=== PATIENT | female | born 2000 | race African-American/Black ===

== ENCOUNTER 2019-03-18 13:46 | Inpatient (IN) | payer MEDICAID ==
[~2019-03-18] VITALS: Ht 165.1 cm; Wt 105.7 kg
[2019-03-18] VITALS (7 sets, daily range): BP systolic 139–174; BP diastolic 71–93
--- NOTE | 2019-03-18 13:56 | NUR ---
BIB ems c/o bilateral lower extremity weakness, to er bed 9, hooked to monitor, changed to hosp gown, warm blanket provided, awaiting md juárez
--- NOTE | 2019-03-18 14:01 | NUR ---
ARTUR NGUYEN AT BEDSIDE
--- NOTE | 2019-03-18 14:02 | NUR ---
penelope berger at bedside
[2019-03-18 14:23] LABS: BASOPHILS % (AUTO) 0.2 % (0.0-2.0); HEMATOCRIT 44 % (33-45); HEMOGLOBIN 14.5 g/dL (11.5-14.8); LYMPHOCYTES # (AUTO) 0.7 /CMM (0.8-4.8); LYMPHOCYTES % (AUTO) 3.4 % (20.0-44.0); MEAN CORPUSCULAR HGB CONC 33 g/dl (31.0-36.0); MEAN CORPUSCULAR VOLUME 80 fL (82-100); MONOCYTES # (AUTO) 1.2 /CMM (0.1-1.30); MONOCYTES % (AUTO) 5.8 % (2.0-12.0); NEUTROPHILS # (AUTO) 18.5 /CMM (1.8-8.9); NEUTROPHILS % (AUTO) 90.6 % (43.0-81.0); PLATELET COUNT (AUTO) 424 /CMM (150-450); RED BLOOD CELL COUNT(AUTO) 5.44 MIL/uL (4.0-5.2); WHITE BLOOD COUNT (AUTO) 20.5 K/uL (4.3-11.0)
[2019-03-18] MEDS ORDERED: ONDANSETRON HCL/PF 4 MG/2 ML VIAL IVP ONE (14:30)
[2019-03-18] MEDS ORDERED: IV NS 0.9% 1,000 ML BAG IV ONE ×2 (14:30→18:00)
[2019-03-18] MEDS ORDERED: KETOROLAC TROMETHAMINE INJ 30 MG/ML VIAL IV ONE (14:30)
[2019-03-18] MEDS ORDERED: ONDANSETRON HCL/PF 4 MG/2 ML VIAL ONE (14:43)
[2019-03-18 14:59] LABS: BILIRUBIN,DIRECT 0.1 mg/dL (0.0-0.2); BILIRUBIN,TOTAL 0.5 mg/dL (0.2-1.0); TOTAL PROTEIN, SERUM 8.5 g/dL (6.4-8.2)
[2019-03-18 15:01] LABS: CALCIUM, SERUM 5.6 mg/dL (8.5-10.1); POTASSIUM 8.4 mmol/L (3.5-5.1)
[2019-03-18 15:02] LABS: CREATININE 8.4 mg/dL (0.6-1.3)
[2019-03-18] MEDS ORDERED: KETOROLAC TROMETHAMINE INJ 30 MG/ML VIAL ONE (15:19)
[2019-03-18] MEDS ORDERED: INSULIN REGULAR, HUMAN 100 UNIT in IV NS 0.9% 99 ML IV PRN ×2 (15:30)
[2019-03-18] MEDS ORDERED: SODIUM POLYSTYRENE SULFONATE 15 G/60 ML BOTTLE RC ONE (15:30)
[2019-03-18] MEDS ORDERED: Magnesium 1GM/D5W 100ML PREMIX 100 ML IV ONE ×2 (15:30→15:36)
[2019-03-18] MEDS ORDERED: FUROSEMIDE 40 MG/4 ML VIAL IV ONE (15:30)
[2019-03-18] MEDS ORDERED: Calcium Gluconate 1GM/10ML 4.65 MEQ in IV NS 0.9% 40 ML IV ONE (15:30)
[2019-03-18] MEDS ORDERED: ALBUTEROL FS 2.5 MG/3 ML VIAL.NEB CONTNEB ONE (15:30)
[2019-03-18] MEDS ORDERED: SODIUM BICARBONATE 5 ML VIAL IV ONE (15:30)
--- NOTE | 2019-03-18 15:30 | NUR ---
FORKLIFT TRUCK OPERATOR AT BEDSIDE
[2019-03-18] MEDS ORDERED: FUROSEMIDE 40 MG/4 ML VIAL ONE (15:36)
[2019-03-18] MEDS ORDERED: SODIUM BICARBONATE 5 ML VIAL ONE (15:36)
[2019-03-18 16:02] LABS: ACETAMINOPHEN < 10 ug/ml (10-30); SALICYLATE 1.2 mg/dL (2.8-20.0)
[2019-03-18] MEDS ORDERED: ALBUTEROL FS 2.5 MG/3 ML VIAL.NEB ONE (16:31)
--- NOTE | 2019-03-18 16:40 | NUR ---
RT AT BEDSIDE FOR BREATHING TX
--- NOTE | 2019-03-18 16:43 | NUR ---
URINE SAMPLE COLLECTED VIA STRAIGHT CATHETER, SENT SAMPLE TO LAB
--- NOTE | 2019-03-18 16:44 | NUR ---
INSULIN REGULAR 0.9% 100ML BAG 1 UNIT/ML CANCELLED BY PHYSICIAN. WASTED MED WITH LISA MANZO.
[2019-03-18] MEDS ORDERED: DEXTROSE 50%-WATER 50 ML DISP.SYRIN ONE (16:46)
[2019-03-18] MEDS ORDERED: INSULIN REGULAR, HUMAN 100 UNIT/ML 10 ML VIAL ONE (16:46)
[2019-03-18] MEDS ORDERED: SODIUM POLYSTYRENE SULFONATE 15 G/60 ML BOTTLE ONE (16:46)
[2019-03-18 16:53] LABS: APPEARANCE,URINE Turbid (CLEAR); BILIRUBIN,URINE SMALL (NEGATIVE); BLOOD, URINE Large Ery/uL (NEGATIVE); COLOR,URINE Brown (YELLOW); KETONES,URINE Negative (NEGATIVE); LEUKOCYTE ESTERASE ,URINE Negative (NEGATIVE); NITRITE, URINE Negative (NEGATIVE); PH,URINE 5.5 (5.0-8.0); PROTEIN,URINE >=300 mg/dl (NEGATIVE); UGLUCOSE 100 MG/DL mg/dL (NEGATIVE); UROBILINOGEN,URINE 0.2 EU/dL (0.2)
[2019-03-18] MEDS ORDERED: INSULIN REGULAR, HUMAN 100 UNIT/ML 10 ML VIAL IV ONE (17:00)
[2019-03-18] MEDS ORDERED: DEXTROSE 50%-WATER 50 ML DISP.SYRIN IVP ONE ×2 (17:00→20:00)
[2019-03-18 17:10] LABS: BACTERIA,URINE None seen /HPF (None Seen); SQUAMOUS EPITHELIAL CELL,UR Moderate /HPF (None Seen); WBC,URINE 0-2 /HPF (0-3)
[2019-03-18 17:11] LABS: URINE AMORPHOUS URATE Many /HPF (None Seen)
--- NOTE | 2019-03-18 17:30 | NUR ---
GOT BED 257 ICU
[2019-03-18] MEDS ORDERED: SODIUM POLYSTYRENE SULFONATE 15 G/60 ML BOTTLE PO ONE (18:00)
[2019-03-18] MEDS ORDERED: IV NS 0.9% 1,000 ML IV PRN (18:04)
--- NOTE | 2019-03-18 18:07 | NUR ---
report given to nila of icu
--- NOTE | 2019-03-18 18:14 | NUR ---
ICU/RN-ADMITTED THIS 19 Y/O FEMALE FROM ER PER ACLS PROTOCOL. ROUTINE ICU ADMISSION CARE INITIATED. NURSING FOCUS:ALTERED RENAL TISSUE PERFUSION R/R DIAGNOSIS:HYPERKALEMIA,KIDNEY FAILURE,RHABDO.,LIVER SHOCK.PT. AWAKE, ALERT, EXPRESSIVE OF NEEDS. DENIES ANY PAIN OR DISCOMFORT. AFEBRILE. PT. IS A FULL CODE.
[2019-03-18] MEDS ORDERED: ZOLPIDEM TARTRATE 5 MG TABLET PO PRN (18:30)
[2019-03-18] MEDS ORDERED: MORPHINE SULFATE INJ 2 MG/ML DISP.SYRIN IV PRN (18:30)
[2019-03-18] MEDS ORDERED: MAGNESIUM HYDROXIDE 30 ML UDC PO PRN (18:30)
--- NOTE | 2019-03-18 19:00 | NUR ---
ICU/RN- PT. W/ URGE TO URINATE, BUT UNABLE TO URINATE. EM CATH X 1 ATTEMPT INSERTED VIA ASEPTIC TECHNIQUE. OBTAINED SCANTY CLEAR TEA COLORED U/O.
[2019-03-18 19:26] LABS: CALCIUM, SERUM 5.4 mg/dL (8.5-10.1); CREATININE 8.8 mg/dL (0.6-1.3); POTASSIUM 7.7 mmol/L (3.5-5.1)
--- NOTE | 2019-03-18 19:30 | NUR ---
ICU/RN- LAB CALLED W/ CRITICAL LAB VALUES NOTED. WILL NOTIFY MD PER PROTOCOL. STATUS UNCHANGED, REPORT GIVEN TO JOVANY LAMBERT.
[2019-03-18] MEDS ORDERED: INSULIN REGULAR, HUMAN 100 UNIT/ML 3 ML VIAL IV ONE (20:00)
--- NOTE | 2019-03-18 20:00 | NUR ---
RN OPENING NOTES: PATIENT IN BED, AWAKE, AND VERBALLY RESPONSIVE. NO RESPIRATORY DISTRESS. NO C/O PAIN. SAFETY PRECAUTIONS IMPLEMENTED. BED LOCKED, ALARM ON, AND IN LOWEST POSITION. HOB ELEVATED. EM CATHETER WAS INSERTED BY CHARGE NURSE GENEVA. EM INTACT, PATENT, AND DRAINING SMALL AMOUNT OF TEA-COLORED URINE. CALL LIGHT PLACED WITHIN REACH. WILL CONT. TO MONITOR.
--- NOTE | 2019-03-18 20:15 | NUR ---
RN NOTE: RECEIVED A CALL FROM LIVE BOWER TO DC IV NS AND START PATIENT ON D5W WITH 3 AMPS OF BICARB. WILL CONT. TO MONITOR FOR CHANGES. Addendum: 03/19/19 at 0003 by XANDER LAMBERT RN DR. RAHMAN ALSO MADE AWARE.
[2019-03-18] MEDS: Sodium Bicarbonate 150 MEQ in IV D5W 1,000 ML IV PRN (20:58)
[2019-03-19] VITALS (29 sets, daily range): BP systolic 125–153; BP diastolic 62–109
[2019-03-19] MEDS: Sodium Bicarbonate 150 MEQ in IV D5W 1,000 ML IV PRN ×2 (03:27→09:57)
[2019-03-19 04:52] LABS: BASOPHILS % (AUTO) 0.1 % (0.0-2.0); EOSINOPHILS % (AUTO) 0.1 % (0.0-6.0); HEMATOCRIT 36 % (33-45); HEMOGLOBIN 12.3 g/dL (11.5-14.8); LYMPHOCYTES % (AUTO) 5.9 % (20.0-44.0); MEAN CORPUSCULAR HGB CONC 34 g/dl (31.0-36.0); MEAN CORPUSCULAR VOLUME 79 fL (82-100); MONOCYTES # (AUTO) 1.1 /CMM (0.1-1.30); MONOCYTES % (AUTO) 6.3 % (2.0-12.0); NEUTROPHILS % (AUTO) 87.6 % (43.0-81.0); PLATELET COUNT (AUTO) 381 /CMM (150-450); RED BLOOD CELL COUNT(AUTO) 4.52 MIL/uL (4.0-5.2); WHITE BLOOD COUNT (AUTO) 17.2 K/uL (4.3-11.0)
[2019-03-19 05:10] LABS: ALANINE AMINOTRANSFERASE 885 U/L (12-78); ALBUMIN 2.3 g/dL (3.4-5.0); ALKALINE PHOSPHATASE 58 U/L (46-116); ASPARTATE AMINOTRANSFERASE 1134 U/L (15-37); BILIRUBIN,TOTAL 0.4 mg/dL (0.2-1.0); CARBON DIOXIDE 23 mmol/L (21-32); CHLORIDE 86 mmol/L (98-107); GLUCOSE 119 mg/dL (74-106); MAGNESIUM 3.9 mg/dL (1.8-2.4); SODIUM SERUM 123 mmol/L (136-145); TOTAL PROTEIN, SERUM 6.7 g/dL (6.4-8.2)
[2019-03-19 05:23] LABS: CHOLESTEROL 120 mg/dL (<200); HDL CHOLESTEROL 42 mg/dL (40-60); LDL 56 mg/dL (0-99); THYROID STIMULATING HORMONE 3.444 uIU/mL (0.358-3.74); TRIGLYCERIDES 128 mg/dL (30-150)
[2019-03-19 05:33] LABS: CALCIUM, SERUM 5.5 mg/dL (8.5-10.1); POTASSIUM 6.3 mmol/L (3.5-5.1)
[2019-03-19 05:34] LABS: CREATININE 9.2 mg/dL (0.6-1.3); PHOSPHORUS 11.6 mg/dL (2.5-4.9); UREA NITROGEN, BLOOD 106 mg/dL (7-18)
--- NOTE | 2019-03-19 06:15 | NUR ---
RN NOTE: PAGED DR. RAHMAN REGARDING CRITICAL LABS, K+ 6.3, Ca 5.5, BUN 106, Cr 9.2, Phos 11.6. AWAITING FOR ORDERS. WILL CONT. TO MONITOR FOR CHANGES. Addendum: 03/19/19 at 0630 by XANDER LAMBERT RN DR. BARRERA MADE AWARE OF PATIENT'S K+ LEVEL. PER , HE WILL TAKE A LOOK AT IT. Addendum: 03/19/19 at 0653 by XANDER LAMBERT RN PAGED DR. RAHMAN AGAIN, STILL AWAITING FOR RESPONSE. CHARGE NURSE MADE AWARE.
[2019-03-19] MEDS ORDERED: INSULIN REGULAR, HUMAN 100 UNIT/ML 3 ML VIAL IV ONE (07:00)
[2019-03-19] MEDS ORDERED: DEXTROSE 50%-WATER 50 ML DISP.SYRIN IVP ONE (07:00)
--- NOTE | 2019-03-19 07:00 | NUR ---
RN CLOSING NOTES: PATIENT IN BED, ASLEEP, BUT EASILY AROUSABLE. NO RESPIRATORY DISTRESS. NO C/O PAIN AT THIS TIME. DR. RAHMAN MADE AWARE OF PATIENT'S CRITICAL LAB RESULTS, URINE OUTPUT OF 25 ML DURING SHIFT, AND URINE GREENISH IN COLOR. RECEIVED NEW ORDER REGULAR INSULIN 10 UNITS IV AND D50. PATIENT STILL ON D5W WITH 3 AMPS OF SODIUM BICARB, TOLERATING WELL. MD AWARE. SAFETY PRECAUTIONS IMPLEMENTED. BED LOCKED AND IN LOWEST POSITION. VITAL SIGNS WITHIN NORMAL THROUGHOUT THE SHIFT. ENDORSED TO AM SHIFT NURSE FOR CONTINUITY OF CARE.
--- NOTE | 2019-03-19 07:25 | NUR ---
ICU/RN PT IS ON THE BED.AWAKE,ALERT.V/S STABLE,AFEBRILE. ON ROOM AIR.SAT O2-100%.IV INFUSING ORDERED.F/C IN PLACE NO URINE OUTPUT.PT IS VERY WEAK,UNABLE TO TURN .C/O OF MUSCLE WEAKNESS AND PAIN WHET EXTREMITIES MOVED.LABS REVIEW. NOTIFIED. NEW ORDERS RECEIVED. DUE MEDS ARE GIVEN ORDERED.REPOSITION FOR COMFORT.
[2019-03-19 07:43] LABS: CREATINE KINASE, TOTAL > 34000 U/L (26-192)
[2019-03-19] MEDS: PANTOPRAZOLE 40 MG TABLET.DR PO SCH (07:54)
[2019-03-19] MEDS ORDERED: SODIUM POLYSTYRENE SULF. PWD 15 GM UDC PO ONE (11:00)
[2019-03-19] MEDS: Sodium Bicarbonate 150 MEQ in IV 1/2NS 1000 ML 1,000 ML IV PRN ×3 (11:18→23:15)
[2019-03-19 13:27] LABS: POTASSIUM 6.4 mmol/L (3.5-5.1)
[2019-03-19 13:28] LABS: CALCIUM, SERUM 5.1 mg/dL (8.5-10.1)
[2019-03-19 13:29] LABS: CREATININE 9.7 mg/dL (0.6-1.3)
--- NOTE | 2019-03-19 14:00 | NUR ---
ICU/RN RIGHT UPPER ARM MID LINE INSERTED ORDERED. DUE MEDS ARE GIVEN ORDERED.PT VOMIT.ZOFRAN IV GIVEN ORDERED.FAMILY AT BED SIDE.
[2019-03-19] MEDS: SEVELAMER CARBONATE 0.8 GM POWD.PACK GT SCH ×2 (14:04→17:02)
[2019-03-19] MEDS: CALCIUM ACETATE 667 MG TABLET PO SCH ×2 (14:04→17:02)
[2019-03-19] MEDS: ONDANSETRON HCL/PF 4 MG/2 ML VIAL IVP PRN (14:04)
--- NOTE | 2019-03-19 18:24 | NUR ---
ICU/RN PT HAD 2 BM.PM CARE PROVIDED.DUE MEDS ARE GIVEN ORDERED.STILL VERY WEAK.C/O OF GENERALIZED WEAKNESS .BMP REPEATED.CONTINUE MONITORING.
[2019-03-19 18:28] LABS: CALCIUM, SERUM 5.1 mg/dL (8.5-10.1); POTASSIUM 6.2 mmol/L (3.5-5.1)
[2019-03-19 18:29] LABS: CREATININE 9.7 mg/dL (0.6-1.3)
--- NOTE | 2019-03-19 19:00 | NUR ---
RN OPENING NOTES: PATIENT IN BED, AWAKE, AND VERBALLY RESPONSIVE. NO RESPIRATORY DISTRESS. NO C/O PAIN. SAFETY PRECAUTIONS IMPLEMENTED. BED LOCKED, ALARM ON, AND IN LOWEST POSITION. HOB ELEVATED. JUAN MIDLINE INTACT, PATENT, AND FLUSHING WELL. ON 02/18 NS WITH 150 MEQ NA BICARB AT 200 MLS/HR. (R) AC #18 AND (L) AC #18 C/D/I. HOB ELEVATED. EM INTACT, PATENT, AND DRAINING SMALL AMOUNT OF URINE GREENISH IN COLOR. CALL LIGHT PLACED WITHIN REACH. WILL CONT. TO MONITOR. Addendum: 03/19/19 at 2237 by XANDER LAMBERT RN 1900: PER AM NURSE, POSSIBLE HD CATH PLACEMENT TOMORROW.
--- NOTE | 2019-03-19 20:20 | NUR ---
RN NOTE: RECEIVED A PHONE CALL FROM PICC LINE NURSE SKINNY. PER SKINNY, DR. MOLINA ORDERED HD CATH INSERTION TODAY. NO ORDER FROM DR. MOLINA NOTED. PER PATIENT, SHE IS CONFUSED AND DOES NOT KNOW WHAT'S GOING ON. PATIENT'S MOM SHERIE SPOKE WITH JOVANY EVANS OVER PHONE AND REFUSED TO GIVE CONSENT TO HD CATH TONIGHT UNTIL SHE SPEAKS WITH DR. MOLINA TOMORROW MORNING. SHE STATED SHE HAD BEEN IN UNIT TODAY UNTIL 6PM AND MD HAS NOT SPOKEN TO HER REGARDING DIALYSIS. Addendum: 03/19/19 at 2226 by XANDER LAMBERT RN PATIENT'S MOM IS REQUESTING TO SPEAK WITH DR. MOLINA TOMORROW. WILL ENDORSE TO AM SHIFT NURSE. Addendum: 03/19/19 at 2228 by XANDER LAMBERT RN CHARGE NURSE ALSO MADE AWARE.
[2019-03-19 20:21] LABS: MONOTEST NEGATIVE (NEGATIVE)
[2019-03-20] VITALS (34 sets, daily range): BP systolic 84–152; BP diastolic 53–107
[2019-03-20] MEDS: Sodium Bicarbonate 150 MEQ in IV 1/2NS 1000 ML 1,000 ML IV PRN (05:13)
--- NOTE | 2019-03-20 07:15 | NUR ---
RN CLOSING NOTES: PATIENT IN STABLE CONDITION DURING SHIFT. PATIENT'S MOM WANTS TO SPEAK TO DR. MOLINA FIRST BEFORE GIVING CONSENT TO HD CATH PLACEMENT. ENDORSED TO AM CHARGE NURSE FOR CONTINUITY OF CARE.
[2019-03-20] MEDS: PANTOPRAZOLE 40 MG TABLET.DR PO SCH (07:30)
[2019-03-20] MEDS: CALCIUM ACETATE 667 MG TABLET PO SCH ×2 (08:00→12:41)
[2019-03-20] MEDS: SEVELAMER CARBONATE 0.8 GM POWD.PACK GT SCH ×2 (08:00→12:41)
[2019-03-20 08:32] LABS: BASOPHILS % (AUTO) 0.2 % (0.0-2.0); EOSINOPHILS % (AUTO) 0.1 % (0.0-6.0); HEMATOCRIT 35 % (33-45); HEMOGLOBIN 11.6 g/dL (11.5-14.8); LYMPHOCYTES # (AUTO) 1.1 /CMM (0.8-4.8); LYMPHOCYTES % (AUTO) 6.7 % (20.0-44.0); MEAN CORPUSCULAR HGB CONC 33 g/dl (31.0-36.0); MEAN CORPUSCULAR VOLUME 80 fL (82-100); MONOCYTES # (AUTO) 1.4 /CMM (0.1-1.30); MONOCYTES % (AUTO) 8.5 % (2.0-12.0); NEUTROPHILS # (AUTO) 14.2 /CMM (1.8-8.9); NEUTROPHILS % (AUTO) 84.5 % (43.0-81.0); PLATELET COUNT (AUTO) 415 /CMM (150-450); RED BLOOD CELL COUNT(AUTO) 4.36 MIL/uL (4.0-5.2); WHITE BLOOD COUNT (AUTO) 16.8 K/uL (4.3-11.0)
[2019-03-20 09:00] LABS: CREATININE 9.9 mg/dL (0.6-1.3)
[2019-03-20 11:20] LABS: LYMPHOCYTES % (MANUAL) 9 % (16-48); MONOCYTES % (MANUAL) 4 % (0-11.0); MYELOCYTES % 1 % (0-0); NEUTROPHILS % (MANUAL) 86 (42-76)
--- NOTE | 2019-03-20 13:50 | NUR ---
Patients mother at bedside on phone with Dr. Ge discussing purpose, risks and benefits of hemodialysis therapy. consent signed thereafter.
--- NOTE | 2019-03-20 16:50 | NUR ---
Patient reports vaginal bleeding, but is unsure if it is her menstrual cycle. She and mother believe the dates are off. There is scant to small amount of blood on bed chux, will endorse to night RN to monitor for any increase of vaginal bleeding. Patient reports comfort after PRN pain medication. and denies respiratory distress.
[2019-03-20] MEDS: HYDROCODONE/APAP 5/325MG 1 EACH TABLET PO PRN (17:04)
--- NOTE | 2019-03-20 19:04 | NUR ---
Patient alert and oriented to self, cognitive delay noted. IV fluids infusing as ordered and 275 CC of dark greenish brown, reddish urine output with foul odor.No BM this shift. Patient and mother notified that hemodialysis catheter placement will commence at approximately 1999 and hemodialysis will occur on 03/21/2019 as per MD orders.
--- NOTE | 2019-03-20 19:40 | NUR ---
Pt. obese, A&Ox3, developmentally delayed, breathing regular on RA, vs stable, denies pain. Pt unable to move legs independently, IV fluid [id number] running at 200ml/hr, JUAN, PICC site c/d/i, RAC #20, LAC #20, IV patent. Garner with minimal dark urine. Pt waiting for Hemodyalisis catheter insertion tonight. Comfort & safety checked.
--- NOTE | 2019-03-20 23:00 | NUR ---
Pt w Hemodialysis cath on R groin, triple lumen by LIVE Sharif.
[2019-03-21] VITALS (15 sets, daily range): BP systolic 94–161; BP diastolic 54–87
[2019-03-21] MEDS ORDERED: SODIUM BICARBONATE SYR 50 MEQ/50 ML DISP.SYRIN ONE (00:43)
[2019-03-21] MEDS: Sodium Bicarbonate 150 MEQ in IV 1/2NS 1000 ML 1,000 ML IV PRN ×2 (01:05→18:48)
--- NOTE | 2019-03-21 02:45 | NUR ---
Pt not sleeping mildly hyperactive, keep removing bp cuff, oximeter sensor. Verbal cues provided.
--- NOTE | 2019-03-21 05:08 | NUR ---
Pt high butts in bed, watching T.V. constantly calling nurse to scratch her feet. Skin massages on both legs given, moisturizing lotion applied.
[2019-03-21 05:19] LABS: BASOPHILS % (AUTO) 0.2 % (0.0-2.0); EOSINOPHILS % (AUTO) 0.1 % (0.0-6.0); HEMATOCRIT 34 % (33-45); HEMOGLOBIN 11.7 g/dL (11.5-14.8); LYMPHOCYTES # (AUTO) 1.1 /CMM (0.8-4.8); MEAN CORPUSCULAR HGB CONC 34 g/dl (31.0-36.0); MEAN CORPUSCULAR VOLUME 80 fL (82-100); MONOCYTES # (AUTO) 1.3 /CMM (0.1-1.30); MONOCYTES % (AUTO) 7.3 % (2.0-12.0); NEUTROPHILS # (AUTO) 15.7 /CMM (1.8-8.9); NEUTROPHILS % (AUTO) 86.4 % (43.0-81.0); PLATELET COUNT (AUTO) 475 /CMM (150-450); RED BLOOD CELL COUNT(AUTO) 4.29 MIL/uL (4.0-5.2); WHITE BLOOD COUNT (AUTO) 18.2 K/uL (4.3-11.0)
[2019-03-21 05:28] LABS: ALBUMIN 1.7 g/dL (3.4-5.0); BILIRUBIN,TOTAL 0.5 mg/dL (0.2-1.0); MAGNESIUM 2.8 mg/dL (1.8-2.4); POTASSIUM 5.6 mmol/L (3.5-5.1); TOTAL PROTEIN, SERUM 5.5 g/dL (6.4-8.2)
[2019-03-21 06:01] LABS: CALCIUM, SERUM 5.5 mg/dL (8.5-10.1); CREATININE 10.5 mg/dL (0.6-1.3); PHOSPHORUS 10.5 mg/dL (2.5-4.9)
--- NOTE | 2019-03-21 06:23 | NUR ---
Dr. Clark aware of lab results with critical values. Dialysis is due this morning aware as well. Pt. stable, ready for hemodialysis.
[2019-03-21 06:35] LABS: EOSINOPHILS % (MANUAL) 1 % (0-4); LYMPHOCYTES % (MANUAL) 7 % (16-48); MONOCYTES % (MANUAL) 9 % (0-11.0); NEUTROPHILS % (MANUAL) 83 (42-76)
--- NOTE | 2019-03-21 06:49 | NUR ---
Bed bath given, pt requires moderate help, new gown and linen applied. Ped w tinge of menstrural blood. comfort and safety maintained in pt.
[2019-03-21] MEDS: PANTOPRAZOLE 40 MG TABLET.DR PO SCH (07:30)
--- NOTE | 2019-03-21 07:32 | NUR ---
Report given to incoming SOURCING MANAGERJusta.
[2019-03-21] MEDS: SEVELAMER CARBONATE 0.8 GM POWD.PACK GT SCH ×3 (07:57→17:10)
[2019-03-21] MEDS: CALCIUM ACETATE 667 MG TABLET PO SCH ×3 (08:00→17:11)
--- NOTE | 2019-03-21 10:00 | NUR ---
INITIAL HD COMPLETED AND TOLERATED WELL. VITALS REMAINED STABLE. PER HOSPITALIST ANUP CABRERA TO DOWNGRADE IF OKAY WITH RENAL MD. SPOKE TO DR. GRANT TO DOWNGRADE TO TELEMETRY STATUS. MD ORDER PLACED.
[2019-03-21 11:39] LABS: CALCIUM, SERUM 6.3 mg/dL (8.5-10.1); POTASSIUM 4.7 mmol/L (3.5-5.1)
--- NOTE | 2019-03-21 12:20 | NUR ---
Report given to Amparo, RN 3 xenia at this time ,also notified family of transfer
--- NOTE | 2019-03-21 13:00 | NUR ---
POLYSOMNOGRAPH TECH NOTES RECEIVED PT VIA BED FROM ICU WITH MOTHER PRESENT AT BEDSIDE; ARRIVED AT THE UNIT AT 1240. VITAL SIGNS RECORDED. PT INTERMITTENTLY DOZING OFF, A/O X2-3. PT ON SUPPLEMENTARY OXYGEN AT 2LPM, WITH NO ACUTE RESPIRATORY DISTRESS NOTED. PT DENIES ANY PAIN OR DISCOMFORT AT THIS TIME. PIVS TO LAC G22, RAC G18 AND JUAN MIDLINE, ALL FLUSHED WITH NS, INTACT AND OPERATIONAL. IVF 1/2 NS WITH NaHCO3 150MEQS AT 200ML/HR TO RAC, INTACT AND FLUID INFUSING WELL. FC IN PLACE WITH TEA-COLORED TO YELLOWISH URINE IN THE BAG WITH 90CC. PT KEPT COMFORTABLE IN BED. PT'S BED IN LOWEST, LOCKED, POSITION WITH SRX3. CALL LIGHT KEPT WITHIN REACH. WILL CONTINUE PLAN OF CARE.
--- NOTE | 2019-03-21 13:10 | NUR ---
NOUGAT CANDY MAKER HELPER NOTES PT HOOKED TO TELEMONITOR, WITH SR HR OF 90.
--- NOTE | 2019-03-21 15:10 | NUR ---
OVERHEAD DISTRIBUTION ENGINEER NOTES RECEIVED CALL FROM LAB REGARDING TOTAL CREATININE KINASE RESULT OF [phone], INFORMED HOSPITALIST/DT. NO NEW ORDERS NOTED AT THIS TIME. PER DT, INSPECTOR FILTERS IS INVOLVED, NO FURTHER ORDERS FOR NOW.
--- NOTE | 2019-03-21 18:37 | NUR ---
SPEECH ASSISTANT CLOSING NOTES PT REMAINS IN BED, AWAKE, A/O X2-3. PT ON SUPPLEMENTARY OXYGEN AT 2LPM, WITH NO ACUTE RESPIRATORY DISTRESS NOTED. PT ON TELEMONITORING SR, HR96. PIVS TO LAC G22, RAC G18 AND JUAN MIDLINE, ALL FLUSHED WITH NS, INTACT AND OPERATIONAL. IVF 1/2 NS WITH NaHCO3 150MEQS AT 200ML/HR TO RAC, INTACT AND FLUID INFUSING WELL. FC IN PLACE WITH TEA-COLORED TO YELLOWISH URINE IN THE BAG WITH 50CC EMPTIED. ALL NEEDS AND CARE ATTENDED. PT KEPT COMFORTABLE IN BED. PT'S BED IN LOWEST, LOCKED, POSITION WITH SRX3. CALL LIGHT KEPT WITHIN REACH. WILL ENDORSE TO INCOMING SUPERVISOR FUNCTIONAL TESTING NURSE FOR FRAN.
--- NOTE | 2019-03-21 19:53 | NUR ---
TAX PREPARER NOTES RECEIVED PATIENT, AWAKE, ALERT ORIENTED X2-3, ON SUPPLEMENTARY OXYGEN AT 2LPM, NO ACUTE SIGNS OF DISTRESS NOTED,NO RESPIRATORY DISTRESS NOTED. PT ON TELEMONITORING SR, HR80s. IV ACCESS TO LAC G#22, RAC G#18 AND JUAN MIDLINE, ALL FLUSHED WITH NS, INTACT AND WORKING PROPERLY. INTACT AND FLUID INFUSING WELL. FC IN PLACE WITH YELLOW URINE.ALL NEEDS AND CARE ATTENDED. PT KEPT COMFORTABLE IN BED. PT'S BED IN LOWEST, LOCKED, POSITION WITH SRX3. CALL LIGHT WITHIN EASY REACH. PATIENT'S MOM, AT BEDSIDE WILL CONTINUE TO MONITOR ACCORDINGLY.
[2019-03-22] VITALS (7 sets, daily range): BP systolic 116–141; BP diastolic 58–89
--- NOTE | 2019-03-22 06:57 | NUR ---
RN NOTES ALL NEEDS ATTENDED AND MET, ABLE TO REST AND SLEPT AT INTERVALS, REPOSITIONED FOR COMFORT, SKIN CARE PROVIDED PER PATIENT REQUEST. CALL LIGHT WITHIN EASY REACH, SAFETY MEASURES IN PLACED. WILL ENDORSE TO AM NURSE FOR CONTINUITY OF CARE.
[2019-03-22] MEDS: PANTOPRAZOLE 40 MG TABLET.DR PO SCH (07:39)
[2019-03-22] MEDS: CALCIUM ACETATE 667 MG TABLET PO SCH ×3 (07:39→17:51)
[2019-03-22 08:18] LABS: BASOPHILS % (AUTO) 0.3 % (0.0-2.0); EOSINOPHILS % (AUTO) 0.5 % (0.0-6.0); HEMATOCRIT 34 % (33-45); HEMOGLOBIN 11.2 g/dL (11.5-14.8); LYMPHOCYTES # (AUTO) 0.9 /CMM (0.8-4.8); MEAN CORPUSCULAR HGB CONC 33 g/dl (31.0-36.0); MEAN CORPUSCULAR VOLUME 82 fL (82-100); MONOCYTES % (AUTO) 5.7 % (2.0-12.0); NEUTROPHILS # (AUTO) 16.2 /CMM (1.8-8.9); NEUTROPHILS % (AUTO) 88.5 % (43.0-81.0); PLATELET COUNT (AUTO) 446 /CMM (150-450); RED BLOOD CELL COUNT(AUTO) 4.19 MIL/uL (4.0-5.2); WHITE BLOOD COUNT (AUTO) 18.3 K/uL (4.3-11.0)
[2019-03-22] MEDS: SEVELAMER CARBONATE 0.8 GM POWD.PACK GT SCH ×3 (08:29→17:51)
--- NOTE | 2019-03-22 08:30 | NUR ---
MS RN NOTES RECEIVED PATIENT IN BED, ASLEEP. PATIENT ON ROOM AIR BREATHING EVENLY WITH NO SIGNS OF DISTRESS OR SOB. EM CATH PRESENT INTACT DRAINING CLEAR YELLOW URINE. LAC # 22 SL, JUAN MIDLINE, RAC #18 SL, PRESENT AND INTACT. SAFETY PRECAUTIONS IN PLACE: BED IN LOW POSITION AND LOCKED, RAILS UP X2, CALL LIGHT WITHIN REACH. WILL CONTINUE TO MONITOR PATIENT.
[2019-03-22 08:34] LABS: ALBUMIN 1.5 g/dL (3.4-5.0); BILIRUBIN,TOTAL 0.4 mg/dL (0.2-1.0); CALCIUM, SERUM 6.4 mg/dL (8.5-10.1); MAGNESIUM 2.8 mg/dL (1.8-2.4); POTASSIUM 5.1 mmol/L (3.5-5.1); TOTAL PROTEIN, SERUM 5.1 g/dL (6.4-8.2)
[2019-03-22 08:37] LABS: CREATININE 9.6 mg/dL (0.6-1.3); PHOSPHORUS 8.3 mg/dL (2.5-4.9)
--- NOTE | 2019-03-22 08:40 | NUR ---
MS RN NOTES RECEIVED CALL FROM LAB REGARDING PATIENT CRITICAL LAB VALUES OF PHOSPHORUS AT 8.3, BUN AT 98, CR AT 9.6 MD NOTIFIED.
[2019-03-22] MEDS: Sodium Bicarbonate 150 MEQ in IV 1/2NS 1000 ML 1,000 ML IV PRN (08:41)
[2019-03-22 12:23] LABS: EOSINOPHILS % (MANUAL) 1 % (0-4); LYMPHOCYTES % (MANUAL) 4 % (16-48); MONOCYTES % (MANUAL) 9 % (0-11.0); MYELOCYTES % 3 % (0-0); NEUTROPHILS % (MANUAL) 83 (42-76)
--- NOTE | 2019-03-22 12:24 | NUR ---
MS RN NOTES DIALYSIS JUST ENDED. 2 L OUT. PATIENT IN STABLE CONDITION AT THIS TIME. WILL CONTINUE TO MONITOR.
[2019-03-22] MEDS: IV NS 0.9% 1,000 ML IV PRN (17:51)
--- NOTE | 2019-03-22 19:06 | NUR ---
BATCH UNLOADER CLOSING NOTES PATIENT CURRENTLY IN BED WATCHING TV WITH HER MOTHER BY BEDSIDE. PATIENT A/O X2. ON ROOM AIR BREATHING EVENLY WITH NO SIGNS OF DISTRESS OR SOB. EM CATH PRESENT INTACT DRAINING CLEAR YELLOW URINE. LAC # 22 SL, JUAN MIDLINE, RAC #18 SL, PRESENT AND INTACT. PATIENT ON EXTERNAL OUTDOOR STUDIES DIRECTOR WITH A NORMAL SR OF 91. SAFETY PRECAUTIONS IN PLACE: BED IN LOW POSITION AND LOCKED, RAILS UP X2, CALL LIGHT WITHIN REACH. WILL ENDORSE TO [employer] [place] HELICOPTER AIRCREWMAN NURSE.
--- NOTE | 2019-03-22 19:30 | NUR ---
MUD WORKER OPENING NOT4E RECEIVED PATIENT IN BED. A/OX3. TOLERATING ROOM AIR,. RESPIRATIONS ARE EVEN AND UNLABORED. NO S/S SOB NOTED. DENIES PAIN AT THIS TIME. EXTERNAL TELE MONITOR READS SR - SINUS TACHY HR 99-100. IN NO APPARENT DISTRESS. IV ACCESS IN LAC PATENT AND SALINE LOCKED. PATIENT REQUEST FOR IT TO BE REMOVED D/T PAIN. JUAN MIDLINE IS INFILTRATED. RAC RUNNING NS@100ML/HR. EM CATHETER IS PRESENT, DRAINING TO GRAVITY, URINE IS YELLOW WITH SEDIMENTS. BED IS LOW AND LOCKED, HOB ELEVATED IN HIGH FOWLERS, SIDE RAILS UPX2, BED ALARM ON, CALL LIGHT WITHIN REACH,. FAMILY AT BEDSIDE. WILL CONTINUE TO MONITOR.
[2019-03-23] VITALS: BP 124/76
[2019-03-23 03:15] LABS: CMV, IgM <30.0 AU/mL (0.0-29.9)
[2019-03-23] MEDS: IV NS 0.9% 1,000 ML IV PRN ×2 (03:58→17:12)
[2019-03-23 04:00] VITALS: BP 123/73
--- NOTE | 2019-03-23 07:30 | NUR ---
RECEIVED PT. THIS AM ,A LITTLE GROGGY,BUT ALERT F/C TO GRAVITY DRAINAGE.LABS TO BE CHECKED BY .
[2019-03-23 07:35] LABS: BASOPHILS % (AUTO) 0.2 % (0.0-2.0); EOSINOPHILS % (AUTO) 0.8 % (0.0-6.0); HEMATOCRIT 31 % (33-45); HEMOGLOBIN 10.1 g/dL (11.5-14.8); LYMPHOCYTES # (AUTO) 1.5 /CMM (0.8-4.8); LYMPHOCYTES % (AUTO) 7.5 % (20.0-44.0); MEAN CORPUSCULAR HGB CONC 33 g/dl (31.0-36.0); MEAN CORPUSCULAR VOLUME 82 fL (82-100); MONOCYTES # (AUTO) 0.9 /CMM (0.1-1.30); MONOCYTES % (AUTO) 4.5 % (2.0-12.0); NEUTROPHILS # (AUTO) 17.6 /CMM (1.8-8.9); PLATELET COUNT (AUTO) 384 /CMM (150-450); RED BLOOD CELL COUNT(AUTO) 3.73 MIL/uL (4.0-5.2); WHITE BLOOD COUNT (AUTO) 20.3 K/uL (4.3-11.0)
[2019-03-23 07:45] LABS: ALANINE AMINOTRANSFERASE 359 U/L (12-78); ALKALINE PHOSPHATASE 52 U/L (46-116); ASPARTATE AMINOTRANSFERASE 352 U/L (15-37); BILIRUBIN,DIRECT 0.1 mg/dL (0.0-0.2); BILIRUBIN,TOTAL 0.3 mg/dL (0.2-1.0); CALCIUM, SERUM 7.6 mg/dL (8.5-10.1); CARBON DIOXIDE 34 mmol/L (21-32); CHLORIDE 88 mmol/L (98-107); GLUCOSE 86 mg/dL (74-106); MAGNESIUM 2.5 mg/dL (1.8-2.4); PHOSPHORUS 6.2 mg/dL (2.5-4.9); POTASSIUM 4.3 mmol/L (3.5-5.1); SODIUM SERUM 128 mmol/L (136-145); TOTAL PROTEIN, SERUM 4.7 g/dL (6.4-8.2)
[2019-03-23 07:46] LABS: CREATININE 8.4 mg/dL (0.6-1.3); UREA NITROGEN, BLOOD 82 mg/dL (7-18)
[2019-03-23 07:48] LABS: ALBUMIN 1.4 g/dL (3.4-5.0)
--- NOTE | 2019-03-23 07:51 | NUR ---
DISTANCE EDUCATION TEACHER CLOSING NOTE PATIENT IN BED. A/OX3. REMAINS TOLERATING ROOM AIR, RESPIRATIONS ARE EVEN AND UNLABORED. NO SOB NOTED. NO C/O PAIN. EXTERNAL TELE MONITOR READS SR - SINUS TACHY HR 99-100.NO DISTRESS NOTED. IV ACCESS MAINTINED IN LAC PATENT AND SALINE LOCKED. JUAN MIDLINE IS INFILTRATED. LFA #20 RUNNING NS@100ML/HR. EM CATHETER IS MAINTAINED, DRAINING TO GRAVITY, URINE IS YELLOW WITH SEDIMENTS, OUTPUT 500. BED IS LOW AND LOCKED, HOB ELEVATED IN HIGH FOWLERS, SIDE RAILS UPX2, BED ALARM ON, CALL LIGHT WITHIN REACH,. WILL ENDORSE TO NEXT SHIFT
[2019-03-23 07:59] LABS: LYMPHOCYTES % (MANUAL) 9 % (16-48); MONOCYTES % (MANUAL) 3 % (0-11.0); MYELOCYTES % 1 % (0-0); NEUTROPHILS % (MANUAL) 87 (42-76)
[2019-03-23 08:00] VITALS: BP 127/77
[2019-03-23 08:51] LABS: CREATINE KINASE, TOTAL > 77866 U/L (26-192)
--- NOTE | 2019-03-23 09:00 | NUR ---
Polo ZAVALETA HERE AND RN MENTIONED FOR HIM TO CHECK LABS INCLUDING ALBUMIN.BEING ABNORMAL.SENIOR DESIGN ENGINEERING SPECIALIST AGREEABLE.
[2019-03-23] MEDS: PANTOPRAZOLE 40 MG TABLET.DR PO SCH (09:37)
[2019-03-23] MEDS: CALCIUM ACETATE 667 MG TABLET PO SCH ×3 (09:38→18:05)
[2019-03-23] MEDS: SEVELAMER CARBONATE 0.8 GM POWD.PACK GT SCH ×3 (09:39→18:05)
[2019-03-23 10:13] LABS: *EBV AB VCA, IgM <36.0 U/mL (0.0-35.9)
--- NOTE | 2019-03-23 12:45 | NUR ---
DIALYSIS COMPLETED AND PT. PARTICULARLY SLUGGISH AND 1300 MEDS HELD.TEXT AND CALL OUT TO CARMELO.
--- NOTE | 2019-03-23 13:30 | NUR ---
Polo ZAVALETA HERE AND CHECKING ON PT. GIVEN STATUS REPORT.ORDERS ENTERED.
--- NOTE | 2019-03-23 14:00 | NUR ---
PT'S MOTHER IN TO VISIT.
--- NOTE | 2019-03-23 15:30 | NUR ---
MIDLINE NURSE HERE AND RT. UPPER ARM EXISTING MIDLINE ADJUSTED AND NOW FUNCTIONAL.
[2019-03-23 16:00] VITALS: BP 130/76
--- NOTE | 2019-03-23 18:00 | NUR ---
GIVEN MOM DUE TO CONSTIPATION.
[2019-03-23 19:30] VITALS: BP 116/66
--- NOTE | 2019-03-23 19:30 | NUR ---
MS RN NOTES PATIENT IN BED, ASLEEP EASILY AROUSED. PATIENT STATES SHE IS SLEEPY. ALERT AND ORIENTED X 3. BREATHING EVEN AND UNLABORED ON ROOM AIR. SHOWS NO SIGNS OF ACUTE RESPIRATORY DISTRESS, NO ACUTE PAIN. FC IS INTACT AND FLOWING. JUAN MIDLINE AND LT FOREARM 20G IS CLEAN DRY AND INTACT, FLUSHING WELL. SHOWS NO SIGNS OF INFILTRATION, NO REDNESS. DIALYSIS REMOVED 2L. SAFETY PRECAUTIONS IN PLACE. BED IN LOWEST POSITION, LOCKED, AND CALL LIGHT KEPT WITHIN REACH.
[2019-03-23] MEDS: HYDROCODONE/APAP 5/325MG 1 EACH TABLET PO PRN (20:06)
--- NOTE | 2019-03-23 20:06 | NUR ---
MS RN NOTES PATIENT COMPLAINING OF PAIN /. GIVEN NORCO PRN AT 2005. WILL CONTINUE TO MONITOR.
[2019-03-23 20:43] VITALS: BP 116/66
[2019-03-24] MEDS: IV NS 0.9% 1,000 ML IV PRN ×2 (03:42→22:17)
[2019-03-24 06:34] LABS: BASOPHILS # (AUTO) 0.1 /CMM (0.0-0.2); BASOPHILS % (AUTO) 0.2 % (0.0-2.0); EOSINOPHILS % (AUTO) 1.3 % (0.0-6.0); HEMATOCRIT 28 % (33-45); HEMOGLOBIN 9.4 g/dL (11.5-14.8); LYMPHOCYTES # (AUTO) 1.7 /CMM (0.8-4.8); LYMPHOCYTES % (AUTO) 7.7 % (20.0-44.0); MEAN CORPUSCULAR HGB CONC 33 g/dl (31.0-36.0); MEAN CORPUSCULAR VOLUME 83 fL (82-100); MONOCYTES % (AUTO) 4.8 % (2.0-12.0); NEUTROPHILS # (AUTO) 18.6 /CMM (1.8-8.9); PLATELET COUNT (AUTO) 346 /CMM (150-450); RED BLOOD CELL COUNT(AUTO) 3.44 MIL/uL (4.0-5.2); WHITE BLOOD COUNT (AUTO) 21.6 K/uL (4.3-11.0)
--- NOTE | 2019-03-24 06:46 | NUR ---
MS RN NOTES PATIENT IN BED, ASLEEP EASILY AROUSED. ALERT AND ORIENTED X 3. BREATHING EVEN AND UNLABORED ON ROOM AIR. SHOWS NO SIGNS OF ACUTE RESPIRATORY DISTRESS, NO ACUTE PAIN. FC IS INTACT AND FLOWING. JUAN MIDLINE AND LT FOREARM 20G IS CLEAN DRY AND INTACT, FLUSHING WELL. SHOWS NO SIGNS OF INFILTRATION, NO REDNESS. ALL DUE MEDICATIONS GIVEN. SAFETY PRECAUTIONS IN PLACE. BED IN LOWEST POSITION, LOCKED, AND CALL LIGHT KEPT WITHIN REACH. WILL ENDORSE TO ONCOMING NURSE.
[2019-03-24 07:00] LABS: ALBUMIN 1.5 g/dL (3.4-5.0); BILIRUBIN,TOTAL 0.3 mg/dL (0.2-1.0); CALCIUM, SERUM 8.1 mg/dL (8.5-10.1); MAGNESIUM 2.6 mg/dL (1.8-2.4); PHOSPHORUS 5.5 mg/dL (2.5-4.9); POTASSIUM 4.1 mmol/L (3.5-5.1); TOTAL PROTEIN, SERUM 4.7 g/dL (6.4-8.2)
[2019-03-24 07:06] LABS: CREATININE 7.6 mg/dL (0.6-1.3)
--- NOTE | 2019-03-24 07:30 | NUR ---
received pt. in am alert and oriented x3.rt. upper arm midline in place.rt. groin access device for dialysis in place.no complaints offered.skin warm and dry.vs stable.
[2019-03-24 08:00] VITALS: BP 119/56
[2019-03-24] MEDS: SEVELAMER CARBONATE 0.8 GM POWD.PACK GT SCH ×3 (10:15→18:28)
[2019-03-24] MEDS: CALCIUM ACETATE 667 MG TABLET PO SCH ×3 (10:15→18:28)
[2019-03-24] MEDS: PANTOPRAZOLE 40 MG TABLET.DR PO SCH (10:15)
[2019-03-24 10:40] LABS: BAND % (MANUAL) 1 % (0.0-5.0); EOSINOPHILS % (MANUAL) 2 % (0-4); LYMPHOCYTES % (MANUAL) 11 % (16-48); MONOCYTES % (MANUAL) 7 % (0-11.0); NEUTROPHILS % (MANUAL) 79 (42-76)
--- NOTE | 2019-03-24 15:00 | NUR ---
KATHLEENED Polo ZAVALETA NP.REGARDING PT. COMPLAINT ABOUT EXCESS MUCUS IN THROAT WELL SWOLLEN TONGUE,AWAITING REPLY.
--- NOTE | 2019-03-24 15:30 | NUR ---
STOOL SENT FOR OCCULT BLOOD.
[2019-03-24 16:00] VITALS: BP 143/89
--- NOTE | 2019-03-24 18:00 | NUR ---
no change in status,mom at bedside most of day.
[2019-03-24 20:41] VITALS: BP 122/64
--- NOTE | 2019-03-25 02:13 | NUR ---
MS/TELE/RN PATIENT IS SLEEPING AT THIS TIME, APPEAR COMFORTABLE, NO DISTRESS NOTED, CALL LIGHT IN REACH. WILL CONTINUE TO MONITOR.
[2019-03-25 06:33] LABS: BASOPHILS % (AUTO) 0.1 % (0.0-2.0); EOSINOPHILS % (AUTO) 1.4 % (0.0-6.0); HEMATOCRIT 26 % (33-45); HEMOGLOBIN 8.6 g/dL (11.5-14.8); LYMPHOCYTES # (AUTO) 1.3 /CMM (0.8-4.8); LYMPHOCYTES % (AUTO) 6.3 % (20.0-44.0); MEAN CORPUSCULAR HGB CONC 33 g/dl (31.0-36.0); MEAN CORPUSCULAR VOLUME 83 fL (82-100); MONOCYTES # (AUTO) 0.9 /CMM (0.1-1.30); MONOCYTES % (AUTO) 4.2 % (2.0-12.0); NEUTROPHILS # (AUTO) 18.8 /CMM (1.8-8.9); PLATELET COUNT (AUTO) 293 /CMM (150-450); RED BLOOD CELL COUNT(AUTO) 3.21 MIL/uL (4.0-5.2); WHITE BLOOD COUNT (AUTO) 21.4 K/uL (4.3-11.0)
--- NOTE | 2019-03-25 06:39 | NUR ---
MS/TELE/RN PATIENT IS STILL SLEEPING AT THIS TIME, APPEAR COMFORTABLE, NO SIGNS OF DISTRESS NOTED, CALL LIGHT IN REACH. ALL NEEDS ATTENDED AT THIS TIME, WILL CONTINUE TO MONITOR.
[2019-03-25 07:08] LABS: ALBUMIN 1.5 g/dL (3.4-5.0); BILIRUBIN,TOTAL 0.2 mg/dL (0.2-1.0); CALCIUM, SERUM 7.9 mg/dL (8.5-10.1); MAGNESIUM 2.8 mg/dL (1.8-2.4); PHOSPHORUS 5.8 mg/dL (2.5-4.9); POTASSIUM 4.1 mmol/L (3.5-5.1); TOTAL PROTEIN, SERUM 4.7 g/dL (6.4-8.2)
[2019-03-25 07:25] LABS: CREATININE 8.6 mg/dL (0.6-1.3)
[2019-03-25 08:00] VITALS: BP 124/62
--- NOTE | 2019-03-25 08:00 | NUR ---
MS/RN OPENING NOTES RECEIVED PATIENT AWAKE LYING ON BED COMFORTABLY. ALERT AND ORIENTED X4. DENIES PAIN AT THIS TIME. NO RESPIRATORY DISTRESS AT THIS TIME. RIGHT UPPER ARM MIDLINE, RIGHT GROIN HD CATH PATENT AND INTACT. ABNORMAL LAB BUN 88 CREA 8.6 MD IS AWARE. BED IN LOWEST POSITION AND LOCKED. SIDE RAILS UP X2. CALL LIGHT WITHIN REACH. WILL CONTINUE TO MONITOR.
[2019-03-25] MEDS: PANTOPRAZOLE 40 MG TABLET.DR PO SCH (08:47)
[2019-03-25] MEDS: CALCIUM ACETATE 667 MG TABLET PO SCH ×3 (08:47→17:34)
[2019-03-25] MEDS: SEVELAMER CARBONATE 0.8 GM POWD.PACK GT SCH ×3 (08:47→17:34)
[2019-03-25] MEDS: IV NS 0.9% 1,000 ML IV PRN (12:56)
[2019-03-25 14:06] LABS: *HIV-1 RNA BY PCR <20 copies/mL (.)
[2019-03-25 16:00] VITALS: BP 136/81
--- NOTE | 2019-03-25 19:11 | NUR ---
MS/RN CLOSING NOTES PATIENT IS LYING ON BED COMFORTABLY. PATIENT IS ALERT AND ORIENTED X4. PATIENT DENIES PAIN AT THIS TIME. RESPIRATION REGULAR AND UNLABORED. THE PATIENT IN NO APPARENT DISTRESS. SEEN AND EXAMINED BY MD WITH ORDERS MADE AND CARRIED OUT. IVF OF NS 1L @100ML/HR INFUSING WELL. KEPT PATIENT CLEAN AND DRY THE WHOLE TIME. ALL DUE MEDS WAS GIVEN. BED IN LOWEST POSITION AND LOCKED. SIDE RAILS UP X2. CALL LIGHT WITH IN REACH. WILL ENDORSED TO NEWSPAPER PUBLISHER FOR FRAN.
[2019-03-25 20:00] VITALS: BP 120/78
--- NOTE | 2019-03-25 20:00 | NUR ---
MS/RN OPENING NOTES RECEIVED PATIENT IN BED, AWAKE, WITH FAMILY MEMBER, NO PAIN REPORTED AND OBSERVED. PATIENT ASKE FOR DINNER TRAY TO BE WARMED. RESPIRATIONS EVEN AND UNLABORED, BED LOCKED, CALL LIGHTS WITHIN REACH, WILL MONITOR. CARE PLAN DISCUSSED. TO MONITOR FOR ANY CHANGES. ABLE TO USE CALL LIGHTS FOR ASSISTANCE.
[2019-03-25] MEDS: HYDROCODONE/APAP 5/325MG 1 EACH TABLET PO PRN (20:47)
--- NOTE | 2019-03-25 20:47 | NUR ---
MS/RN NOTES PAIN MEDICATION NORCO 5-325 MG PO GIVEN FOR PAIN IN HEAD BY PATIENT TO MONITOR RELIEF .
--- NOTE | 2019-03-25 21:53 | NUR ---
MS/RN NOTES PATIENT REPORTED SOME PAIN, ASSISTED IN REPOSITION, KEPT HOB ELEVATE, OXYGEN FOR COMFORT, ICE COMPRESS GIVEN IN LEFT LEG, PATIENT VERBALIZED IMPROVE CONDITION, REFUSE TO TAKE MORPHINE. WILL MONITOR.
[2019-03-26] MEDS: IV NS 0.9% 1,000 ML IV PRN ×2 (00:32→14:25)
[2019-03-26] MEDS: ONDANSETRON HCL/PF 4 MG/2 ML VIAL IVP PRN (01:52)
--- NOTE | 2019-03-26 01:59 | NUR ---
ms/rn notes zofran given ivp for nausea and vomiting episode, abdomen distended with beavers catheter draining urine, to monitor.
[2019-03-26] MEDS: MAG HYDROX/AL HYDROX/SIMETH 30 ML UDC PO PRN ×2 (02:38→20:37)
--- NOTE | 2019-03-26 02:41 | NUR ---
MS/RN NOTES MAALOX NEEDED ADMINISTERED VIA ORAL, PATIENT ABLE TO SWALLOW AND TOLERATED WELL FOR ABDOMINAL DISCOMFORT.
--- NOTE | 2019-03-26 06:49 | NUR ---
321-1 MS/RN NOTES PATIENT ABLE TO SLEEP FEW HOURS WIITH PAIN IN HEAD REPORTED AT THE INITIAL START OF SHIFT, PAIN MEDICATION NORCO GIVEN, WITH ZOFRAN GIVEN FOR N/V AND MAALOX FOR ABDOMINAL DISCOMFORT. ADDIDTED WITH BOWEL MOVEMENT WILL MONITOR , ON OXYGEN FOR COMFORT MEASURES, REQUIRE 2 PERSON ASSIST. WILL ENDORSE TO AM RN FOR FRAN.
[2019-03-26 07:15] LABS: BASOPHILS % (AUTO) 0.2 % (0.0-2.0); EOSINOPHILS % (AUTO) 1.7 % (0.0-6.0); HEMATOCRIT 25 % (33-45); HEMOGLOBIN 8.2 g/dL (11.5-14.8); LYMPHOCYTES # (AUTO) 1.2 /CMM (0.8-4.8); LYMPHOCYTES % (AUTO) 5.5 % (20.0-44.0); MEAN CORPUSCULAR HGB CONC 33 g/dl (31.0-36.0); MEAN CORPUSCULAR VOLUME 83 fL (82-100); MONOCYTES # (AUTO) 1.2 /CMM (0.1-1.30); MONOCYTES % (AUTO) 5.9 % (2.0-12.0); NEUTROPHILS # (AUTO) 18.3 /CMM (1.8-8.9); NEUTROPHILS % (AUTO) 86.7 % (43.0-81.0); PLATELET COUNT (AUTO) 276 /CMM (150-450); RED BLOOD CELL COUNT(AUTO) 2.99 MIL/uL (4.0-5.2); WHITE BLOOD COUNT (AUTO) 21.1 K/uL (4.3-11.0)
[2019-03-26] MEDS: SEVELAMER CARBONATE 0.8 GM POWD.PACK GT SCH ×3 (07:31→18:31)
[2019-03-26] MEDS: PANTOPRAZOLE 40 MG TABLET.DR PO SCH (07:31)
[2019-03-26] MEDS: CALCIUM ACETATE 667 MG TABLET PO SCH ×3 (07:31→17:39)
[2019-03-26 08:00] VITALS: BP 145/96
--- NOTE | 2019-03-26 08:05 | NUR ---
MS/RN OPENING NOTES RECEIVED PATIENT SLEEPING IN BED ALERT AND ORIENTED X 4. VERBALLY RESPONSIVE AND ABLE TO FOLLOW DIRECTIONS. BREATHING REGULAR AND UNLABORED ON ROOM AIR. RIGHT CEPHALIC MIDLINE G18 AND RIGHT GROIN PERMCATH. IVF OF NS 1L @ 100ML/HR LINE ON AND INFUSING WELL. NO COMPLAINTS OF PAIN/DISCOMFORT REPORTED AT THIS TIME. BED LOW AND LOCKED ON SEMI FOWLERS POSITION. CALL LIGHT WITHIN REACH. WILL CONTINUE TO MONITOR
[2019-03-26 08:16] LABS: ALBUMIN 1.7 g/dL (3.4-5.0); BILIRUBIN,TOTAL 0.2 mg/dL (0.2-1.0); CALCIUM, SERUM 7.9 mg/dL (8.5-10.1); MAGNESIUM 2.8 mg/dL (1.8-2.4); POTASSIUM 4.2 mmol/L (3.5-5.1); TOTAL PROTEIN, SERUM 5.2 g/dL (6.4-8.2)
--- NOTE | 2019-03-26 08:30 | NUR ---
MS/RN NOTES PATIENT BUN 76 CREA 8 MD IS AWARE.
[2019-03-26 16:00] VITALS: BP 158/82
--- NOTE | 2019-03-26 18:31 | NUR ---
MS/RN CLOSING NOTES PATIENT IN BED ALERT AND ORIENTED X 4. VERBALLY RESPONSIVE AND ABLE TO FOLLOW DIRECTIONS. BREATHING REGULAR AND UNLABORED ON ROOM AIR. RIGHT CEPHALIC 18 MIDLINE, RIGHT GROIN PERMACATH. IV LINE INTACT AND PATENT. IVF OF NS 1L @ 100ML/HR ON AND INFUSING WELL. NO COMPLAINTS OF PAIN/DISCOMFORT REPORTED AT THIS TIME. SEEN AND EXAMINED BY MD WITH ORDERS MADE AND CARRIED OUT. BED LOW AND LOCKED ON SEMI FOWLERS POSITION. CALL LIGHT WITHIN REACH. WILL ENDORSED TO ANTITANK ASSAULT GUNNER FOR FRAN
--- NOTE | 2019-03-26 19:18 | NUR ---
MS RN OPENING NOTES PATIENT RECEIVED RESTING IN BED WITH MOM AT BEDSIDE, A/O X4. STABLE ON RA WITH BREATHING EVEN AND UNLABORED, NO SOB NOTED. NO SIGNS OF ACUTE DISTRESS. NO COMPLAINTS OF PAIN OR DISCOMFORT. MIDLINE LOCATED ON R CEPHALIC, PERMACATH LOCATED ON R GROIN. IVF RUNNING NS @ 100ML/ HR. SAFETY PRECAUTIONS IN PLACE WITH BED IN LOWEST POSITION, CALL LIGHT WITHIN REACH, BREAKS ON, AND SIDE RAILS UPX 2. WILL CONTINUE TO MONITOR.
--- NOTE | 2019-03-26 19:50 | NUR ---
MS RN NOTES PATIENT HAD LARGE BOWEL MOVEMENT, CLAIMED SHE FEELS BETTER AND MORE RELIEF. APPEARS TO BE CALMER AND LESS ANXIOUS. NO SIGNS OF ACUTE DISTRESS NOTED. WILL CONTINUE TO MONITOR.
[2019-03-26 20:00] VITALS: BP 144/81
[2019-03-26] MEDS: HYDROCODONE/APAP 5/325MG 1 EACH TABLET PO PRN (21:55)
--- NOTE | 2019-03-26 22:00 | NUR ---
MS RN NOTES PATIENT WAS FELT LIKE SHE HAD A HARD TIME BREATHING, WAS FEELING A HEART BURN SENSATION. PUT PATIENT ON 4L OF NC, O2 SAT AT 98% VITALS SHOWED 127/ 92 P 99. ADMINISTERED 1MG MORPHINE PRN. ADMINISTERED MAALOX FOR INDIGESTION. STAT EKG WAS DOWN AND SHOWED SINUS TACHY. PATIENT APPEARED TO BE CALMER, EMPHASIZED ON RELAXATION TECHNIQUES AND DEEP BREATHING. WILL CONTINUE TO MONITOR THROUGHOUT THE NIGHT.
--- NOTE | 2019-03-26 22:29 | NUR ---
MS RN NOTES NORCO ADMINISTERED FOR LEG PAIN AND HEADACHE. WILL CONTINUE TO MONITOR.
[2019-03-27] MEDS: IV NS 0.9% 1,000 ML IV PRN (06:20)
--- NOTE | 2019-03-27 06:55 | NUR ---
MS RN CLOSING NOTES PATIENT CURRENTLY RESTING IN BEDIN HIGH FOWLERS POSITION A/O X4, ABLE TO MAKE NEEDS KNOWN. ON 2L OF O2 VIA NC WITH BREATHING AND ULABORED, NO SOB NOTED. NO SIGNS OF ACUTE DISTRESS. NO CURRENT COMPLAINTS OF PAIN OR DISCOMFORT. JUAN #18 MIDLINE PATENT AND INTACT, PERMACATH LOCATEDO N R GROIN. PATIENT REFUSED TO BE HOOKED UP TO FLUIDS, HAS BEEN DRINKING FLUID THROUGHOUT THE NIGHT. PATIENT WAS KPET CLEAN AND DRY THROUGHOUT THE NIGHT, ALL NEEDS ATTENDED TO. SAFETY PRECAUTIONS IN PLACE WITH BED IN LOWEST POSITION, CALL LIGHT WITHIN REACH, SIDE RAILS UP X2, AND BREAKS ON. WILL ENDORSE TO ONCOMING SHIFT ABOUT FRAN.
[2019-03-27 07:33] LABS: BASOPHILS % (AUTO) 0.1 % (0.0-2.0); EOSINOPHILS % (AUTO) 0.9 % (0.0-6.0); HEMATOCRIT 25 % (33-45); HEMOGLOBIN 8.1 g/dL (11.5-14.8); LYMPHOCYTES % (AUTO) 4.2 % (20.0-44.0); MEAN CORPUSCULAR HGB CONC 33 g/dl (31.0-36.0); MEAN CORPUSCULAR VOLUME 83 fL (82-100); MONOCYTES # (AUTO) 1.4 /CMM (0.1-1.30); NEUTROPHILS # (AUTO) 20.8 /CMM (1.8-8.9); NEUTROPHILS % (AUTO) 88.8 % (43.0-81.0); PLATELET COUNT (AUTO) 270 /CMM (150-450); WHITE BLOOD COUNT (AUTO) 23.4 K/uL (4.3-11.0)
[2019-03-27 07:45] LABS: CALCIUM, SERUM 7.7 mg/dL (8.5-10.1); MAGNESIUM 2.9 mg/dL (1.8-2.4); PHOSPHORUS 6.9 mg/dL (2.5-4.9); POTASSIUM 4.3 mmol/L (3.5-5.1)
[2019-03-27 07:47] LABS: CREATININE 9.5 mg/dL (0.6-1.3)
[2019-03-27 08:00] VITALS: BP 147/96
--- NOTE | 2019-03-27 08:00 | NUR ---
MS RN OPENING NOTES Received Patient asleep and resting in bed. A/O x 4. VS stable with no acute distress. Breathing even and unlabored on room air with no respiratory distress. Denies pain. No signs and symptoms of pain. JUAN Midline clean, intact, patent and flushing well with NS infusing at 100ml/hr. Right Groin Permacath clean and intact. Safety precautions in place. Bed locked and set to lowest position with side rails x 2 up. All needs rendered at this time. Call light within reach. Will continue to monitor.
[2019-03-27] MEDS: SEVELAMER CARBONATE 0.8 GM POWD.PACK GT SCH ×3 (08:42→18:02)
[2019-03-27] MEDS: CALCIUM ACETATE 667 MG TABLET PO SCH ×3 (08:42→18:02)
[2019-03-27] MEDS: PANTOPRAZOLE 40 MG TABLET.DR PO SCH (08:42)
[2019-03-27 16:00] VITALS: BP_SYST 140; BP_SYST 148; BP_DIAS 78; BP_DIAS 92
[2019-03-27] MEDS: CEFTRIAXONE 1 G in IV D5W 50 ML IV SCH (17:00)
--- NOTE | 2019-03-27 17:33 | NUR ---
MS RN NOTES Patient pulled out intact JUAN Midline. Notified case briefer. Awaiting reinsertion of midline. Patient in stable condition. Mom at bedside. Will continue to monitor.
[2019-03-27] MEDS: DOXYCYCLINE 100 MG in IV D5W 100 ML IV SCH (18:00)
--- NOTE | 2019-03-27 19:00 | NUR ---
MS RN CLOSING NOTES Patient awake and watching TV in bed. A/O x 4. VS stable with no acute distress. Breathing even and unlabored on 2LPM via NC with no respiratory distress. Denies pain. No signs and symptoms of pain. Notified visual supervisor and Intelligence Officer Basic of pulled out JUAN Midline. Awaiting reinsertion. Will endorse to oncoming shift. Right Groin Permacath clean and intact. Safety precautions in place. Bed locked and set to lowest position with side rails x 2 up. All needs rendered at this time. Mom at bedside. Call light within reach. Will endorse plan of care to oncoming shift.
--- NOTE | 2019-03-27 19:45 | NUR ---
MS RN OPENING NOTES PATIENT AWAKE, A/O X4; RESTING COMFORTABLY IN BED WITH MOTHER AT BEDSIDE; BREATHING EVEN AND UNLABORED; NO SOB OR ACUTE RESPIRATORY DISTRESS NOTED; PATIENT TOLERATING 2L NC WELL; R GROIN PERMA CATH NOTED; PER AM SHIFT, JUAN MIDLINE ACCIDENTALLY CAME OUT; AWAITING REINSERTION; SAFETY PRECAUTIONS IN PLACE; BED LOCKED IN LOW POSITION; CALL LIGHT WITHIN REACH; WILL CONTINUE TO MONITOR
[2019-03-27 20:13] VITALS: BP 143/85
[2019-03-27 20:33] VITALS: BP 143/85
--- NOTE | 2019-03-27 20:37 | NUR ---
MS RN NOTES PATIENT TEMP SLIGHTLY ELEVATED 100.7; SPOKE WITH MD FOR ACETAMINOPHEN PRN ORDERS; MD AWARE; ORDERS PLACED; INFORMED PATIENT'S MOTHER; WILL CONTINUE TO MONITOR PATIENT;
[2019-03-27] MEDS: ACETAMINOPHEN 325 MG TABLET PO PRN (20:55)
[2019-03-28] MEDS: DOXYCYCLINE 100 MG in IV D5W 100 ML IV SCH ×2 (05:01→17:17)
[2019-03-28] MEDS: ACETAMINOPHEN 325 MG TABLET PO PRN ×3 (05:50→23:31)
--- NOTE | 2019-03-28 05:57 | NUR ---
MS RN NOTES PATIENT INTERMITTENTLY IN AND OUT OF SLEEP; TEMP TAKEN; 99.1, 325 MG ACETAMINOPHEN GIVEN; WILL CONTINUE TO MONITOR
--- NOTE | 2019-03-28 06:24 | NUR ---
MS RN CLOSING NOTES PATIENT AWAKE, A/O X4; WATCHING TV IN BED; PATIENT RESTING IN BED COMFORTABLY IN BED; BREATHING EVEN AND UNLABORED; NO SOB, NO S/S OF ACUTE RESPIRATORY DISTRESS NOTED; PATIENT TOLERATING 2L NC WELL; R GROIN PERMA CATH INTACT; L UA MIDLINE #18 INTACT AND PATENT; RUNNING NS @ 100 ML/HR; ALL NEEDS TENDED TO; SAFETY PRECAUTIONS IN PLACE, BED LOCKED IN LOW POSITION; BILATERAL SIDE RAILS X2; CALL LIGHT WITHIN EASY REACH; WILL ENDORSE CONTINUITY OF CARE TO ONCOMING SHIFT
[2019-03-28 07:27] LABS: BASOPHILS % (AUTO) 0.1 % (0.0-2.0); EOSINOPHILS % (AUTO) 0.7 % (0.0-6.0); HEMATOCRIT 23 % (33-45); HEMOGLOBIN 7.6 g/dL (11.5-14.8); LYMPHOCYTES # (AUTO) 0.9 /CMM (0.8-4.8); LYMPHOCYTES % (AUTO) 4.4 % (20.0-44.0); MEAN CORPUSCULAR HGB CONC 33 g/dl (31.0-36.0); MEAN CORPUSCULAR VOLUME 83 fL (82-100); MONOCYTES # (AUTO) 1.6 /CMM (0.1-1.30); MONOCYTES % (AUTO) 7.8 % (2.0-12.0); PLATELET COUNT (AUTO) 254 /CMM (150-450); RED BLOOD CELL COUNT(AUTO) 2.77 MIL/uL (4.0-5.2); WHITE BLOOD COUNT (AUTO) 20.7 K/uL (4.3-11.0)
[2019-03-28 07:42] LABS: CALCIUM, SERUM 7.8 mg/dL (8.5-10.1); MAGNESIUM 2.7 mg/dL (1.8-2.4); PHOSPHORUS 6.5 mg/dL (2.5-4.9); POTASSIUM 3.8 mmol/L (3.5-5.1)
[2019-03-28 07:43] LABS: CREATININE 9.1 mg/dL (0.6-1.3)
[2019-03-28 08:00] VITALS: BP 140/94
--- NOTE | 2019-03-28 08:00 | NUR ---
MS RN OPENING NOTES RECEIVED PATIENT AWAKE, A/O X4; RESTING COMFORTABLY IN BED BREATHING EVEN AND UNLABORED; NO SOB OR ACUTE RESPIRATORY DISTRESS NOTED; PATIENT TOLERATING 2L NC WELL; R GROIN PERMA CATH NOTED; PER AM SHIFT, RSAFETY PRECAUTIONS IN PLACE; BED LOCKED IN LOW POSITION; CALL LIGHT WITHIN REACH; PT ALSO HAD WATERY STOOL THIS AM X1. WILL CONTINUE TO MONITOR
[2019-03-28] MEDS: PANTOPRAZOLE 40 MG TABLET.DR PO SCH (08:58)
[2019-03-28] MEDS: HYDROCODONE/APAP 5/325MG 1 EACH TABLET PO PRN (08:58)
[2019-03-28] MEDS: SEVELAMER CARBONATE 0.8 GM POWD.PACK GT SCH ×3 (08:58→17:16)
[2019-03-28] MEDS: CALCIUM ACETATE 667 MG TABLET PO SCH ×3 (08:58→17:16)
--- NOTE | 2019-03-28 10:45 | NUR ---
WATERY STOOL JIM GREER MADE AWARE OF WATERY STOOLS AND LOW GRADE FEVER FROM LAST NIGHT. JIM ORDERED FOR STOOL FOR CDIFF. WILL COLLECT ONCE AVAILABLE.
--- NOTE | 2019-03-28 12:00 | NUR ---
CRITICAL CKMB RESULTS CRITICAL CKMB RESULTS RELAYED TO JOSELYN TRANSPORTATION MODELER. NO NEW ORDERS GIVEN.
--- NOTE | 2019-03-28 15:00 | NUR ---
STOOL AND SPUTUM COLLECTED STOOL COLLECTED FOR C-DIFF AND SPUTUM COLLECTED FOR RESPIRATORY CULTURE.
[2019-03-28 16:00] VITALS: BP 132/100
[2019-03-28] MEDS: CEFTRIAXONE 1 G in IV D5W 50 ML IV SCH (16:27)
--- NOTE | 2019-03-28 17:30 | NUR ---
PROCALCITONIN LEVELS RELAYED PROCALCITONIN LEVELS TO JOSELYN PASTRY MIXER. NO NEW ORDERS GIVEN AT THIS TIME.
--- NOTE | 2019-03-28 17:59 | NUR ---
MS RN CLOSING NOTES PATIENT AWAKE, A/O X4; PTS MOTHER IS AT BEDSIDE. WATCHING TV IN BED; PATIENT RESTING IN BED COMFORTABLY PT HAD MULTIPLE WATERY STOOLS TODAY. ABOUT 7X. STOOL WAS COLLECTED FOR C-DIFF CULTURE. INFECTIOUS DISEASE IS ALSO AWARE. PT BREATHING EVEN AND UNLABORED; NO SOB, NO S/S OF ACUTE RESPIRATORY DISTRESS NOTED; PATIENT TOLERATING ROOM AIR WELL; R GROIN PERMA CATH INTACT; L UA MIDLINE #18 INTACT AND PATENT, NO S/S OF INFECTION OR INFILTRATION TO R GROIN PERMACATH OR LLUA MIDDLINE; NS RUNNING NS @ 100 ML/HR; ALL NEEDS TENDED TO; SAFETY PRECAUTIONS IN PLACE, BED LOCKED IN LOW POSITION; BILATERAL SIDE RAILS X2; CALL LIGHT WITHIN EASY REACH; WILL ENDORSE CONTINUITY OF CARE TO ONCOMING SHIFT
[2019-03-28] MEDS: VANCOMYCIN HCL 125 MG/2.5 ML ORAL.SUSP PO SCH ×2 (18:30→23:32)
--- NOTE | 2019-03-28 19:34 | NUR ---
MS RN OPENING NOTES PATIENT RESTING IN BED COMFORTABLY; BREATHING EVEN AND UNLABORED; NO SOB; NO S/S OF ACUTE RESPIRATORY SYNDROME NOTED; A/O X4; MOTHER AT BEDSIDE; R GROIN PERMACATH IN PLACE; LUBA #18 MIDLINE, INTACT AND PATENT; RUNNING NS @ 100ML/HR; NO S/S OF REDNESS OR INFILTRATION; SAFETY PRECAUTIONS IN PLACE; BED LOCKED IN LOW POSITION; BILATERAL SIDE RAILS X2; CALL LIGHT WITHIN REACH; WILL CONTINUE TO MONITOR
[2019-03-28 20:00] VITALS: BP 144/81
[2019-03-28 20:05] LABS: APPEARANCE,URINE CLEAR (CLEAR); BILIRUBIN,URINE NEGATIVE (NEGATIVE); BLOOD, URINE LARGE Ery/uL (NEGATIVE); COLOR,URINE YELLOW (YELLOW); KETONES,URINE TRACE (NEGATIVE); LEUKOCYTE ESTERASE ,URINE SMALL (NEGATIVE); NITRITE, URINE NEGATIVE (NEGATIVE); PROTEIN,URINE 30 mg/dl (NEGATIVE); UGLUCOSE NEGATIVE (NEGATIVE); UROBILINOGEN,URINE 0.2 EU/dL (0.2)
[2019-03-28 20:25] LABS: BACTERIA,URINE 2+ /HPF (None Seen)
[2019-03-29] MEDS: VANCOMYCIN HCL 125 MG/2.5 ML ORAL.SUSP PO SCH ×2 (05:08→12:01)
[2019-03-29] MEDS: DOXYCYCLINE 100 MG in IV D5W 100 ML IV SCH ×2 (05:09→17:27)
[2019-03-29] MEDS: IV NS 0.9% 1,000 ML IV PRN (05:29)
--- NOTE | 2019-03-29 06:26 | NUR ---
MS RN CLOSING NOTES PATIENT RESTING IN BED COMFORTABLY; BREATHING EVEN AND UNLABORED; NO SOB; NO S/S OF ACUTE RESPIRATORY SYNDROME NOTED; A/O X4; R GROIN PERMACATH IN PLACE; LUBA #18 MIDLINE, INTACT AND PATENT; RUNNING NS @ 100ML/HR; NO S/S OF REDNESS OR INFILTRATION; SAFETY PRECAUTIONS IN PLACE; BED LOCKED IN LOW POSITION; BILATERAL SIDE RAILS X2; CALL LIGHT WITHIN REACH; ALL NEEDS TENDED TO; WILL ENDORSE CONTINUITY OF CARE TO ONCOMING SHIFT;
--- NOTE | 2019-03-29 06:54 | NUR ---
MS RN NOTES PATIENT REPORTED BURNING AT IV SITE; IVF STOPPED; WILL INFORM ONCOMING SHIFT
--- NOTE | 2019-03-29 07:20 | NUR ---
MS RN OPENING NOTES RECEIVED PT IN BED, ASLEEP, EASILY AROUSED, A/O X3-4. PT TOLERATING RA, WITH NO ACUTE RESPIRATORY DISTRESS NOTED. PT COMPLAINS OF LUBA MIDLINE SITE WITH BURNING AND TIGHTENING PAIN. PER GRAPHIC ARTIST NURSE IT WAS INTACT THE WHOLE NIGHT. RN FLUSHED AND ASPIRATED SITE WITH NS, PT STILL COMPLAINS. RN RN BURN MADE AWARE OF MIDLINE REINSERTION. CURRENTLY, NO IV SITE AT THE MOMENT. PT KEPT COMFORTABLE IN BED. PT'S BED IN LOWEST, LOCKED POSITION WITH SR X3. WILL CONTINUE PLAN OF CARE.
[2019-03-29 07:35] LABS: BASOPHILS # (AUTO) 0.1 /CMM (0.0-0.2); BASOPHILS % (AUTO) 0.3 % (0.0-2.0); HEMATOCRIT 25 % (33-45); HEMOGLOBIN 8.1 g/dL (11.5-14.8); LYMPHOCYTES % (AUTO) 4.7 % (20.0-44.0); MEAN CORPUSCULAR HGB CONC 33 g/dl (31.0-36.0); MEAN CORPUSCULAR VOLUME 83 fL (82-100); MONOCYTES # (AUTO) 1.4 /CMM (0.1-1.30); MONOCYTES % (AUTO) 6.7 % (2.0-12.0); NEUTROPHILS # (AUTO) 18.1 /CMM (1.8-8.9); NEUTROPHILS % (AUTO) 87.3 % (43.0-81.0); PLATELET COUNT (AUTO) 318 /CMM (150-450); RED BLOOD CELL COUNT(AUTO) 2.96 MIL/uL (4.0-5.2); WHITE BLOOD COUNT (AUTO) 20.7 K/uL (4.3-11.0)
[2019-03-29 07:43] LABS: CALCIUM, SERUM 8.2 mg/dL (8.5-10.1); CREATININE 9.7 mg/dL (0.6-1.3); MAGNESIUM 2.7 mg/dL (1.8-2.4); PHOSPHORUS 7.2 mg/dL (2.5-4.9); POTASSIUM 3.6 mmol/L (3.5-5.1)
--- NOTE | 2019-03-29 08:22 | NUR ---
MS RN NOTES RN OFFERED MORNING MEDICINES, PT REFUSED TO HAVE IT AT THIS TIME. HD NURSE/JESS PRESENT AT BEDSIDE PREPPING PT FOR HD. PT IS AWARE. WILL CONTINUE TO MONITOR.
--- NOTE | 2019-03-29 09:13 | NUR ---
MS RN NOTES RN OFFERED MORNING MEDS AT THIS TIME. PT PREFERS TO TAKE IT LATER AFTER DIALYSIS IS DONE. WILL CONTINUE TO MONITOR PT.
[2019-03-29] MEDS: CALCIUM ACETATE 667 MG TABLET PO SCH ×3 (10:16→17:27)
[2019-03-29] MEDS: SEVELAMER CARBONATE 0.8 GM POWD.PACK GT SCH ×3 (10:16→17:27)
[2019-03-29] MEDS: PANTOPRAZOLE 40 MG TABLET.DR PO SCH (10:16)
[2019-03-29 16:43] VITALS: BP 160/108
[2019-03-29] MEDS ORDERED: FEE PK DOSING 1 MIN EA MC ONE (17:11)
[2019-03-29] MEDS: PIPERACILLIN /TAZOBACTAM 2.25 G in IV D5W 50 ML IV SCH (18:40)
--- NOTE | 2019-03-29 18:47 | NUR ---
MS RN CLOSING NOTES PT IN BED, AWAKE, A/O X3-4. PT TOLERATING RA, WITH NO ACUTE RESPIRATORY DISTRESS NOTED. PT DENIES ANY PAIN OR DISCOMFORT AT THIS TIME. MOTHER PRESENT AT BEDSIDE. INTERRUPTED IV ANTIBIOTICS, PT HAVING SHOWER/BED BATH WITH ASSISTANCE BY THE MOTHER. IVF NS AT 100ML/HR TO JUAN MIDLINE, ON GOING IV ZOSYN TO INFUSE AGAIN WHEN THE PT IS DONE. PT KEPT COMFORTABLE. ALL NEEDS AND CARE ATTENDED. PT'S KEPT BED IN LOWEST, LOCKED POSITION WITH SR X3. WILL ENDORSE TO INCOMING TELEVISION SERVICE ENGINEER NURSE FOR FRAN.
--- NOTE | 2019-03-29 19:15 | NUR ---
MS/RN OPENING NOTES: RECEIVED PT IN BED, AWAKE AND EATING DINNER. MOM AT BEDSIDE. A/O X3-4. PT TOLERATING RA, WITH NO ACUTE RESPIRATORY DISTRESS NOTED. JUAN MIDLINE INTACT AND PATENT. PATIENT DISCONNECTED FROM THE IV LINE AT THE MOMENT BECAUSE SHE WILL BE GOING TO THE BEDSIDE COMMODE. SAFETY MEASURES IN PLACE. PT'S BED IN LOWEST, LOCKED POSITION WITH SR X3. WILL CONTINUE PLAN OF CARE.
[2019-03-29] MEDS: ONDANSETRON HCL/PF 4 MG/2 ML VIAL IVP PRN (19:50)
--- NOTE | 2019-03-29 19:50 | NUR ---
MS/RN NOTES: PATIENT COMPLAINED OF NAUSEA AND VOMITING. EMESIS PRESENT. ADMINISTERED ZOFRAN 4MG IV PUSH. VS STABLE. WILL REASSESS AND CONTINUE MONITORING.
[2019-03-29 20:00] VITALS: BP 143/96
[2019-03-29] MEDS ORDERED: VANCOMYCIN 1 GM in IV D5W 250ml IV ONE (20:00)
[2019-03-29 20:09] VITALS: BP 143/96
[2019-03-29] MEDS: ACETAMINOPHEN 325 MG TABLET PO PRN (23:35)
[2019-03-30] MEDS: IV NS 0.9% 1,000 ML IV PRN ×2 (02:45→17:42)
[2019-03-30] MEDS: PIPERACILLIN /TAZOBACTAM 2.25 G in IV D5W 50 ML IV SCH ×4 (04:22→22:27)
[2019-03-30] MEDS: DOXYCYCLINE 100 MG in IV D5W 100 ML IV SCH ×2 (05:23→18:32)
[2019-03-30] MEDS ORDERED: VANCOMYCIN POST DIALYSIS 500MG IV PRN ×2 (06:00)
--- NOTE | 2019-03-30 06:43 | NUR ---
MS/RN CLOSING NOTES: PATIENT SLEEPING IN BED, REMAINS A/O X3-4. ON 2L OF OXYGEN VIA NC, WITH NO ACUTE RESPIRATORY DISTRESS NOTED. PT DENIES ANY PAIN OR DISCOMFORT AT THIS TIME. IVF NS AT 100ML/HR TO JUAN MIDLINE, KEPT COMFORTABLE AND ELECTRONIC EQUIPMENT REPAIRER BED THROUGHOUT THE NIGHT. ALL NEEDS AND CARE ATTENDED. SAFETY MEASURES KEPT IN PLACE. PT'S KEPT BED IN LOWEST, LOCKED POSITION WITH SR X3. WILL ENDORSE TO INCOMING DAY SHIFT NURSE FOR FRAN.
[2019-03-30 06:58] LABS: BASOPHILS # (AUTO) 0.1 /CMM (0.0-0.2); BASOPHILS % (AUTO) 0.4 % (0.0-2.0); EOSINOPHILS % (AUTO) 1.8 % (0.0-6.0); HEMATOCRIT 23 % (33-45); HEMOGLOBIN 7.5 g/dL (11.5-14.8); LYMPHOCYTES # (AUTO) 1.1 /CMM (0.8-4.8); LYMPHOCYTES % (AUTO) 6.5 % (20.0-44.0); MEAN CORPUSCULAR HGB CONC 33 g/dl (31.0-36.0); MEAN CORPUSCULAR VOLUME 84 fL (82-100); MONOCYTES # (AUTO) 1.3 /CMM (0.1-1.30); MONOCYTES % (AUTO) 8.1 % (2.0-12.0); NEUTROPHILS # (AUTO) 13.8 /CMM (1.8-8.9); NEUTROPHILS % (AUTO) 83.2 % (43.0-81.0); PLATELET COUNT (AUTO) 350 /CMM (150-450); RED BLOOD CELL COUNT(AUTO) 2.71 MIL/uL (4.0-5.2); WHITE BLOOD COUNT (AUTO) 16.6 K/uL (4.3-11.0)
--- NOTE | 2019-03-30 07:33 | NUR ---
MS RN OPENING NOTES RECEIVED PT IN BED, ASLEEP, EASILY AROUSED, A/O X3-4. PT TOLERATING RA, WITH NO ACUTE RESPIRATORY DISTRESS NOTED. PT DENIES ANY PAIN OR DISCOMFORT AT THIS TIME, ALSO DENIES ANY CONCERNS OR QUESTIONS AT THIS MOMENT. IVF NS AT 100ML/HR TO JUAN MIDLINE, INTACT AND OPERATIONAL. PT KEPT COMFORTABLE IN BED. PT'S BED IN LOWEST, LOCKED POSITION WITH SR X3. WILL CONTINUE PLAN OF CARE.
[2019-03-30] MEDS: SEVELAMER CARBONATE 0.8 GM POWD.PACK GT SCH ×3 (07:58→17:36)
[2019-03-30] MEDS: PANTOPRAZOLE 40 MG TABLET.DR PO SCH (07:58)
[2019-03-30] MEDS: CALCIUM ACETATE 667 MG TABLET PO SCH ×3 (07:59→17:35)
[2019-03-30 08:00] VITALS: BP 139/97
[2019-03-30 08:26] LABS: CALCIUM, SERUM 8.3 mg/dL (8.5-10.1); MAGNESIUM 2.4 mg/dL (1.8-2.4); PHOSPHORUS 6.8 mg/dL (2.5-4.9); POTASSIUM 3.2 mmol/L (3.5-5.1)
[2019-03-30 08:29] LABS: CREATININE 7.8 mg/dL (0.6-1.3)
--- NOTE | 2019-03-30 09:17 | NUR ---
MS RN NOTES RECEIVED CALL FROM LAB REGARDING PROCALCITONIN LVL RESULT WILL BE DELAYED DUE TO MACHINE NOT WORKING.
[2019-03-30 16:00] VITALS: BP 147/98
[2019-03-30] MEDS ORDERED: NEPRO VAN 237 ML CAN PO PRN (17:30)
--- NOTE | 2019-03-30 19:08 | NUR ---
MS RN CLOSING NOTES PT REMAINS IN BED, AWAKE, A/O X3-4. PT TOLERATING RA, WITH NO ACUTE RESPIRATORY DISTRESS NOTED. PT DENIES ANY PAIN OR DISCOMFORT AT THIS TIME.IVF NS AT 100ML/HR TO JUAN MIDLINE, INTACT AND OPERATIONAL. ALL NEEDS AND CARE ATTENDED. PT KEPT COMFORTABLE IN BED. PT'S BED IN LOWEST, LOCKED POSITION WITH SR X3. WILL ENDORSE TO INCOMING NIGHT NURSE FOR FRAN.
--- NOTE | 2019-03-30 19:15 | NUR ---
MS RN CLOSING NOTES PT IN BED, AWAKE, A/O X3. ON RA IN NO APPARENT ACUTE RESPIRATORY DISTRESS PT DENIES ANY PAIN OR DISCOMFORT AT THIS TIME.IVF NS AT 100ML/HR TO JUAN MIDLINE, INTACT AND OPERATIONAL. ALL NEEDS AND CARE ATTENDED. BED IN LOWEST, LOCKED POSITION WITH SR X3. REVIEWED POC , MOTHER AT THE SIDE QUESTIONS CONERNS ADDRESSED. WILL CONT TO MONITOR Addendum: 03/31/19 at [id number] by JAZMINE CANTU RN OPENING NOTE
[2019-03-30 20:46] VITALS: BP 143/111
[2019-03-31] MEDS: PIPERACILLIN /TAZOBACTAM 2.25 G in IV D5W 50 ML IV SCH ×3 (06:05→20:36)
--- NOTE | 2019-03-31 06:30 | NUR ---
MS RN CLOSING NOTES PT REMAINS IN BED, AWAKE, A/O X3-4. PT TOLERATING RA, WITH NO ACUTE RESPIRATORY DISTRESS NOTED. IVF NS AT 100ML/HR TO JUAN MIDLINE, INTACT AND OPERATIONAL. ALL NEEDS AND CARE ATTENDED. PT USING BEDSIDE COMMODE UNDEPENDENTLY. DENIES DISTRESS. PT KEPT COMFORTABLE PT'S BED IN LOWEST, LOCKED POSITION WITH SR X3. WILL ENDORSE TO INCOMING NIGHT NURSE FOR FRAN.
[2019-03-31] MEDS: IV NS 0.9% 1,000 ML IV PRN (06:50)
[2019-03-31] MEDS: DOXYCYCLINE 100 MG in IV D5W 100 ML IV SCH ×2 (06:50→17:59)
--- NOTE | 2019-03-31 07:53 | NUR ---
ms rn opening notes patient received on room air, no sob noted, a/o x4 and is denying pain or discomfort at this time. JUAN midline 18 present with NS @ 100 ml per hour. Bed at the lowest setting, call light within reach, side rails up x2.
[2019-03-31 08:00] VITALS: BP 135/85
[2019-03-31] MEDS: SEVELAMER CARBONATE 0.8 GM POWD.PACK GT SCH ×3 (08:09→17:30)
[2019-03-31] MEDS: PANTOPRAZOLE 40 MG TABLET.DR PO SCH (08:09)
[2019-03-31] MEDS: CALCIUM ACETATE 667 MG TABLET PO SCH ×3 (08:09→17:30)
[2019-03-31 12:13] LABS: BASOPHILS % (AUTO) 0.3 % (0.0-2.0); EOSINOPHILS % (AUTO) 2.7 % (0.0-6.0); HEMATOCRIT 21 % (33-45); HEMOGLOBIN 7.1 g/dL (11.5-14.8); LYMPHOCYTES # (AUTO) 0.9 /CMM (0.8-4.8); LYMPHOCYTES % (AUTO) 9.4 % (20.0-44.0); MEAN CORPUSCULAR HGB CONC 33 g/dl (31.0-36.0); MEAN CORPUSCULAR VOLUME 84 fL (82-100); MONOCYTES # (AUTO) 0.5 /CMM (0.1-1.30); MONOCYTES % (AUTO) 5.1 % (2.0-12.0); NEUTROPHILS # (AUTO) 7.5 /CMM (1.8-8.9); NEUTROPHILS % (AUTO) 82.5 % (43.0-81.0); PLATELET COUNT (AUTO) 357 /CMM (150-450); RED BLOOD CELL COUNT(AUTO) 2.54 MIL/uL (4.0-5.2); WHITE BLOOD COUNT (AUTO) 9.1 K/uL (4.3-11.0)
[2019-03-31 12:32] LABS: ALBUMIN 2.1 g/dL (3.4-5.0); BILIRUBIN,TOTAL 0.4 mg/dL (0.2-1.0); CALCIUM, SERUM 8.4 mg/dL (8.5-10.1); CREATININE 5.8 mg/dL (0.6-1.3); TOTAL PROTEIN, SERUM 5.9 g/dL (6.4-8.2)
[2019-03-31 12:40] LABS: POTASSIUM 2.8 mmol/L (3.5-5.1)
--- NOTE | 2019-03-31 12:45 | NUR ---
rn notes HD done at this time. 2 L out. Vital signs stable.
--- NOTE | 2019-03-31 12:50 | NUR ---
rn notes Potassium of 2.8 from lab. Per HD RN, lab took blood during HD.
--- NOTE | 2019-03-31 14:34 | NUR ---
rn notes made aware of the K level
[2019-03-31 16:00] VITALS: BP 132/96
[2019-03-31 16:04] LABS: CALCIUM, SERUM 8.8 mg/dL (8.5-10.1); CREATININE 5.1 mg/dL (0.6-1.3)
[2019-03-31 16:16] LABS: POTASSIUM 2.7 mmol/L (3.5-5.1)
--- NOTE | 2019-03-31 16:40 | NUR ---
rn notes Per order from Dr. Diaz, 80 mEq of Potassium to be infused, start with 40 mEq of IV potassium, and if tolerating, add another 40 mEq. If patient does not tolerate IV potassium, switch to oral form and continue giving 80 meq of potassium. TORB
[2019-03-31] MEDS: POTASSIUM CL. PREMIX PERIPHER. 50 ML IV SCH ×4 (16:48→23:27)
--- NOTE | 2019-03-31 18:07 | NUR ---
rn closing notes Patient remains on room air, no sob noted, patient denies pain at this time. Patient able to move around with good balance. Patient is s/p HD, 2000 ml removed. Potassium being replaced at this time. JUAN midline with 18 NS @ 100 ml per hour. Plan is to set up HD as outpatient. Bed at the lowest setting, call light within reach, side rails up x2. Will give report to NOC RN for FRAN bedside.
--- NOTE | 2019-03-31 19:41 | NUR ---
MS RN OPENING NOTES RECEIVED PATIENT RESTING AT THE SIDE OF THE BED, A/O X4. STABLE ON RA BREATHING EVEN AND UNLABORED. NO SIGNS OF ACUTE DISTRESS. NO COMPLAINTS OF PAIN OR DISCOMFORT. MIDLINE LOCATED ON R UA #18 RUNNING 100 ML/HR, STILL RUNNING POTASSIUM PREVIOUS SHIFT. SAFETY PRECAUTIONS IN PLACE WITH BED IN LOWEST POSITION, CALL LIGHT WITHIN REACH, SIDE RAILS UP, AND BREAKS ON. WILL CONTINUE TO MONITOR.
[2019-03-31 20:00] VITALS: BP 135/96
--- NOTE | 2019-04-01 00:16 | NUR ---
MS RN NOTES 40mEQ of potassium given to patient, patient beginning to feel pain on left arm where ivf is located, placed ice pack on site. Per day shift rn, Andonnian ordered 80 meQ of potassium to replace and if unable to tolerate IV switch to PO. PO potassium ordered 50meQ. Will continue to monitor.
[2019-04-01] MEDS ORDERED: POTASSIUM CHLORIDE 20 MEQ TAB.PRT.SR PO ONE (00:30)
[2019-04-01] MEDS: IV NS 0.9% 1,000 ML IV PRN ×2 (03:45→18:16)
[2019-04-01] MEDS: PIPERACILLIN /TAZOBACTAM 2.25 G in IV D5W 50 ML IV SCH ×3 (04:21→21:05)
[2019-04-01] MEDS: DOXYCYCLINE 100 MG in IV D5W 100 ML IV SCH (05:21)
--- NOTE | 2019-04-01 06:46 | NUR ---
MS CLOSING NOTES PATIENT RESTING AT THE SIDE OF THE BED, A/O X4. STABLE ON RA BREATHING EVEN AND UNLABORED. NO SIGNS OF ACUTE DISTRESS. NO COMPLAINTS OF PAIN OR DISCOMFORT. MIDLINE LOCATED ON R UA #18 RUNNING 100 ML/HR. SAFETY PRECAUTIONS IN PLACE WITH BED IN LOWEST POSITION, CALL LIGHT WITHIN REACH, SIDE RAILS UP, AND BREAKS ON. PATIENT WAS KEPT NPO THROUGHOUT THE NIGHT. ALL NEEDS ATTENDED TO. WILL ENDORSE TO ONCOMING SHIFT ABOUT FRAN.
--- NOTE | 2019-04-01 07:15 | NUR ---
MS RN NOTES PATIENT IN BED ALERT ORIENTED X 4. NO ACUTE DISTRESS NOTED. BREATHING UNLABORED. NO SOB NOTED. SAFETY MEASURES IN PLACE. CALL LIGHT WITHIN REACH. WILL CONTINUE TO MONITOR ACCORDINGLY
[2019-04-01] MEDS: PANTOPRAZOLE 40 MG TABLET.DR PO SCH (07:30)
[2019-04-01 07:43] LABS: BASOPHILS # (AUTO) 0.1 /CMM (0.0-0.2); BASOPHILS % (AUTO) 0.4 % (0.0-2.0); EOSINOPHILS % (AUTO) 2.5 % (0.0-6.0); HEMATOCRIT 25 % (33-45); LYMPHOCYTES # (AUTO) 1.4 /CMM (0.8-4.8); LYMPHOCYTES % (AUTO) 9.7 % (20.0-44.0); MEAN CORPUSCULAR HGB CONC 33 g/dl (31.0-36.0); MEAN CORPUSCULAR VOLUME 85 fL (82-100); MONOCYTES % (AUTO) 6.7 % (2.0-12.0); NEUTROPHILS # (AUTO) 11.6 /CMM (1.8-8.9); NEUTROPHILS % (AUTO) 80.7 % (43.0-81.0); PLATELET COUNT (AUTO) 408 /CMM (150-450); WHITE BLOOD COUNT (AUTO) 14.4 K/uL (4.3-11.0)
[2019-04-01 08:00] VITALS: BP 125/76
[2019-04-01 08:00] LABS: CREATININE 4.2 mg/dL (0.6-1.3); POTASSIUM 3.3 mmol/L (3.5-5.1)
[2019-04-01] MEDS: CALCIUM ACETATE 667 MG TABLET PO SCH ×3 (08:00→18:15)
[2019-04-01] MEDS: SEVELAMER CARBONATE 0.8 GM POWD.PACK GT SCH ×3 (08:00→18:15)
--- NOTE | 2019-04-01 09:55 | NUR ---
MS RN NOTES POTASSIUM LOW 3.3, RELAYED TO DR CAITLYN FELTON MADE AWARE WITH NEW ORDER FOR POTASSIUM 40MEQ IV ONCE, ORDER CLARIFIED AND READ BACK, NOTED AND CARRIED OUT.
[2019-04-01] MEDS ORDERED: POTASSIUM CHLORIDE 10 MEQ/50 ML PREMIXED IVPB FOR PERIPHERAL LINE IV ONE (10:00)
[2019-04-01] MEDS: POTASSIUM CL. PREMIX PERIPHER. 50 ML IV SCH ×4 (10:34→16:19)
[2019-04-01] MEDS ORDERED: LIDOCAINE HCL/PF 1% 30 ML SDV ONE (10:37)
[2019-04-01] MEDS ORDERED: HEPARIN SODIUM, PORCINE 1,000 UNIT/ML VIAL ONE (10:37)
--- NOTE | 2019-04-01 10:55 | NUR ---
MS RN NOTES PATIENT TRANSPORTED TO OPERATING ROOM IN S TABLE CONDITION. ALERT ORIENTED X 4. N O ACUTE DISTRESS NOTED.
--- NOTE | 2019-04-01 12:48 | NUR ---
MS RN NOTES PATIENT CAME BACK FROM RECOVERY ROOM S/P PERMACATH PLACEMENT, LEFT UPPER CHEST DRESSING CLEAN DRY AND INTACT. REPORT GIVEN BY WADE RN. VITALS SIGNS STABLE. PATIENT ALERT ORIENTED X 4. NO ACUTE DISTRESS NOTED. WILL CONTINUE TO MONITOR PATIENT. RECEIVED NEW ORDERS FROM DR KALA SOSA, RESUME PREOP ORDERS.
[2019-04-01 16:00] VITALS: BP 144/99
[2019-04-01] MEDS: ONDANSETRON HCL/PF 4 MG/2 ML VIAL IVP PRN (16:16)
[2019-04-01] MEDS: DOXYCYCLINE HYCLATE (100 MG) 100 MG TABLET PO SCH (18:15)
--- NOTE | 2019-04-01 18:57 | NUR ---
MS RN NOTES PATIENT IN BED ALERT ORIENTED X 4. VITAL SIGNS REMAIN STABLE TROUGHOUT THE SHIFT. NO ACUTE DISTRESS NOTED. BREATHING UNLABORED. NO SOB NOTED. NEEDS ATTENDED AND ANTICIPATED. KEPT CLEAN DRY AND COMFORTABLE. SAFETY MEASURES IN PLACE. CALL LIGHT WITHIN REACH. WILL ENDORSE TO NIGHT NURSE FOR CONTINUITY OF CARE
--- NOTE | 2019-04-01 19:35 | NUR ---
MS RN OPENING NOTES PATIENT RESTING IN BED. FAMILY PRESENT AT THE BEDSIDE. A/O X4. ABLE TO VERBALIZE NEEDS. ON ROOM AIR. NO S/S OF SOB. PATIENT COMPLAINING OF HEADACHE. RIGHT UPPER ARM MIDLINE, SIZE 18, INTACT & PATENT WITH NS RUNNING AT 100CC/HR. BED LOCKED, SIDE RAILS X2, CALL LIGHT WITHIN REACH. WILL CONTINUE TO MONITOR.
[2019-04-01] MEDS: ACETAMINOPHEN 325 MG TABLET PO PRN (19:38)
--- NOTE | 2019-04-01 19:38 | NUR ---
MS RN NOTES PRN TYLENOL 325 MG GIVEN PER PATIENT'S REQUEST FOR HEADACHE.
[2019-04-01 20:00] VITALS: BP 139/98
[2019-04-01] MEDS: HYDROCODONE/APAP 5/325MG 1 EACH TABLET PO PRN (23:29)
[2019-04-02] MEDS: HYDROCODONE/APAP 5/325MG 1 EACH TABLET PO PRN ×2 (03:32→21:50)
[2019-04-02] MEDS: DOXYCYCLINE HYCLATE (100 MG) 100 MG TABLET PO SCH (05:02)
[2019-04-02] MEDS: PIPERACILLIN /TAZOBACTAM 2.25 G in IV D5W 50 ML IV SCH ×3 (05:02→21:51)
[2019-04-02] MEDS: IV NS 0.9% 1,000 ML IV PRN (05:06)
[2019-04-02] MEDS: PANTOPRAZOLE 40 MG TABLET.DR PO SCH (07:46)
[2019-04-02 07:54] LABS: BASOPHILS % (AUTO) 0.3 % (0.0-2.0); EOSINOPHILS % (AUTO) 2.9 % (0.0-6.0); HEMATOCRIT 22 % (33-45); HEMOGLOBIN 7.1 g/dL (11.5-14.8); LYMPHOCYTES # (AUTO) 1.5 /CMM (0.8-4.8); MEAN CORPUSCULAR HGB CONC 32 g/dl (31.0-36.0); MEAN CORPUSCULAR VOLUME 85 fL (82-100); MONOCYTES # (AUTO) 0.7 /CMM (0.1-1.30); MONOCYTES % (AUTO) 6.2 % (2.0-12.0); NEUTROPHILS # (AUTO) 8.7 /CMM (1.8-8.9); NEUTROPHILS % (AUTO) 77.6 % (43.0-81.0); PLATELET COUNT (AUTO) 367 /CMM (150-450); WHITE BLOOD COUNT (AUTO) 11.3 K/uL (4.3-11.0)
--- NOTE | 2019-04-02 07:55 | NUR ---
MS RN CLOSING NOTES PATIENT ASLEEP IN BED, EASY TO AWAKEN. A/OX4. ON ROOM AIR. NO S/S OF SOB AND NO COMPLAINTS OF PAIN. RIGHT UPPER ARM MIDLINE SIZE 18 INTACT & PATENT WITH NS RUNNING AT 100CC/HR. LCW PERMACATH DRESSING DRY & INTACT. BED LOCKED, SIDE RAILS X2, CALL LIGHT WITHIN REACH. WILL ENDORSE TO DAY SHIFT NURSE TO FOLLOW PLAN OF CARE.
[2019-04-02 08:00] VITALS: BP 144/96
[2019-04-02 08:14] LABS: CALCIUM, SERUM 9.5 mg/dL (8.5-10.1); CREATININE 3.3 mg/dL (0.6-1.3); POTASSIUM 3.3 mmol/L (3.5-5.1)
[2019-04-02] MEDS: CALCIUM ACETATE 667 MG TABLET PO SCH ×3 (08:45→18:35)
[2019-04-02] MEDS: SEVELAMER CARBONATE 0.8 GM POWD.PACK GT SCH ×3 (08:46→18:35)
--- NOTE | 2019-04-02 09:30 | NUR ---
MS RN NOTES LEFT CHEST WALL PERMACATH REMOVED BY DR MADISON MOLINA, PATIENT TOLERATED WELL. MD PLACED DRESSING CLEAN DRY AND INTACT.
[2019-04-02] MEDS: Potassium Chloride 20 MEQ in IV NS 0.9% 1,000 ML IV PRN (10:20)
--- NOTE | 2019-04-02 18:58 | NUR ---
MS RN NOTES PATIENT IN BED ALERT ORIENTED X 4. NO ACUTE DISTRESS NOTED. BREATHING UNLABORED. NO SOB NOTED.LEFT CHEST WALL DRESSINNG CLEAN DRY AND INTACT. NEEDS ATTENDED AND ANTICIPATED. KEPT CLEAN DRY AND COMFORTABLE. SAFETY MEASURES IN PLACE. CALL LIGHT WITHIN REACH. WILL ENDORSE TO NIGHT NURSE FOR CONTINUITY OF CARE
[2019-04-02 20:00] VITALS: BP 151/116
--- NOTE | 2019-04-02 20:00 | NUR ---
MS RN NOTES RECEIVED PATIENT AWAKE IN BED WITH NO DISTRESS NOTED. CALL LIGHT WITHIN REACH. FAMILY AT BEDSIDE. NO C/O PAIN OR DISCOMFORT. PERIPHERAL LINE INTACT AND PATENT. ENCOURAGED USE OF CALL LIGHT FOR ASSISTANCE AND VERBALIZED GOOD UNDERSTANDING. BED IN LOW LOCK SETTING. ROOM FREE OF CUTTER AND BELONGINGS KEPT NEAR BEDSIDE. PATIENT VERBALIZED GOOD UNDERSTANDING. WILL CONTINUE TO MONITOR.
[2019-04-03] MEDS: Potassium Chloride 20 MEQ in IV NS 0.9% 1,000 ML IV PRN ×2 (00:15→18:15)
[2019-04-03] MEDS ORDERED: ALBUTEROL FS 2.5 MG/3 ML VIAL.NEB NEB SCH (03:30)
[2019-04-03] MEDS: PIPERACILLIN /TAZOBACTAM 2.25 G in IV D5W 50 ML IV SCH ×2 (05:05→12:21)
--- NOTE | 2019-04-03 07:18 | NUR ---
MS RN NOTES PATIENT AWAKE IN BED WITH NO DISTRESS NOTED. CALL LIGHT WITHIN REACH. ALL DUE MEDS GIVEN ORDERED WITH NO ASE. PERIPHERAL LINE INTACT AND PATENT. NO C/O PAIN OR DISCOMFORT. BED IN LOW LOCK SETTING. ROOM FREE OF CLUTTER AND BELONGINGS KEPT NEAR BEDSIDE. WILL ENDORSE TO ONCOMING SHIFT.
[2019-04-03] MEDS: PANTOPRAZOLE 40 MG TABLET.DR PO SCH ×2 (07:30→08:27)
--- NOTE | 2019-04-03 07:30 | NUR ---
RN MS NOTES PT AWAKE, ALERT AND ORIENTED, SITTING IN HER BED, NO COMPLAINT OF PAIN OR ANY DISCOMFORT, CALL LIGHT WITHIN REACH, NEEDS ATTENDED.
[2019-04-03 08:00] VITALS: BP 146/61
[2019-04-03] MEDS: CALCIUM ACETATE 667 MG TABLET PO SCH ×3 (08:00→18:05)
[2019-04-03] MEDS: SEVELAMER CARBONATE 0.8 GM POWD.PACK GT SCH ×3 (08:00→18:05)
--- NOTE | 2019-04-03 13:00 | NUR ---
RN MS NOTES PT IN BED, AWAKE, ALERT AND ORIENTED, NO COMPLAINT OF PAIN, NOT IN DISTRESS, TOLERATES CURRENT DIET, DUE MEDS GIVEN, INDEPENDENT WITH ADL'S, NEEDS ATTENDED.
[2019-04-03 18:00] VITALS: BP 136/101
--- NOTE | 2019-04-03 19:00 | NUR ---
RN MS NOTES PT AWAKE, ALERT AND ORIENTED, SITTING IN HER BED, MOM AT BEDSIDE, PT DENIES PAIN, NOT IN DISTRESS, ABLE TO TRANSFER FROM BED TO BEDSIDE COMMODE, IV FLUIDS INFUSING WELL, CALL LIGHT WITHIN REACH, TOLERATES CURRENT DIET WELL, ALL NEEDS ATTENDED.
--- NOTE | 2019-04-03 20:00 | NUR ---
received sitting on the edge of the bed. alert and orientated. family at the bedside. noted right upper arm midline IV infusing
[2019-04-03 20:40] VITALS: BP 146/101
[2019-04-03 21:02] VITALS: BP 146/101
--- NOTE | 2019-04-04 04:07 | NUR ---
CLOSING NOTES: asleep at this time. attempted tp draw blood for AM lad from the MIDLINE unsuccessfully. She went to bed after midnight, watching TV 'til late. Dressing left C/W gauze applied to s/p area oerm cath removed. RT fem cath inoted, site w/o redness or endema. Patient using the bedside commode thru the night. pleaseent patient no complaints offered.
--- NOTE | 2019-04-04 07:30 | NUR ---
RN MS NOTES PT SITTING IN BED, AWAKE, ALERT AND ORIENTED, NO COMPLAINT OF PAIN, NOT IN DISTRESS, IV FLUIDS INFUSING, CALL LIGHT WITHIN REACH, KEPT WARM AND COMFORTABLE IN BED.
[2019-04-04 08:00] VITALS: BP 148/110
[2019-04-04 08:18] LABS: BASOPHILS # (AUTO) 0.1 /CMM (0.0-0.2); BASOPHILS % (AUTO) 0.6 % (0.0-2.0); EOSINOPHILS % (AUTO) 4.3 % (0.0-6.0); HEMATOCRIT 23 % (33-45); HEMOGLOBIN 7.5 g/dL (11.5-14.8); LYMPHOCYTES # (AUTO) 1.8 /CMM (0.8-4.8); LYMPHOCYTES % (AUTO) 15.1 % (20.0-44.0); MEAN CORPUSCULAR HGB CONC 33 g/dl (31.0-36.0); MEAN CORPUSCULAR VOLUME 84 fL (82-100); MONOCYTES # (AUTO) 0.8 /CMM (0.1-1.30); MONOCYTES % (AUTO) 6.5 % (2.0-12.0); NEUTROPHILS # (AUTO) 8.8 /CMM (1.8-8.9); NEUTROPHILS % (AUTO) 73.5 % (43.0-81.0); PLATELET COUNT (AUTO) 386 /CMM (150-450); RED BLOOD CELL COUNT(AUTO) 2.72 MIL/uL (4.0-5.2); WHITE BLOOD COUNT (AUTO) 11.9 K/uL (4.3-11.0)
[2019-04-04 09:03] LABS: CALCIUM, SERUM 10.4 mg/dL (8.5-10.1); CREATININE 1.6 mg/dL (0.6-1.3); POTASSIUM 3.4 mmol/L (3.5-5.1)
[2019-04-04 09:14] LABS: MAGNESIUM 1.2 mg/dL (1.8-2.4)
[2019-04-04] MEDS: CALCIUM ACETATE 667 MG TABLET PO SCH ×3 (09:27→17:40)
[2019-04-04] MEDS: PANTOPRAZOLE 40 MG TABLET.DR PO SCH (09:27)
[2019-04-04] MEDS: SEVELAMER CARBONATE 0.8 GM POWD.PACK GT SCH ×3 (09:27→17:39)
--- NOTE | 2019-04-04 13:00 | NUR ---
RN MS NOTES PT AWAKE, ALERT AND ORIENTED, SITTING IN HER BED, NO COMPLAINT OF PAIN, BREATHING PATTERN NORMAL, IV FLUIDS INFUSING WELL, CALL LIGHT WITHIN REACH, NEEDS ATTENDED, SEEN BY DR. FELTON, PLAN OF CARE DISCUSSED WITH PT, VERBALIZED UNDERSTANDING, FEMORAL CATH AT THE RIGHT GROIN REMOVED BY DIALYSIS NURSE, PT TOLERATED PROCEDURE WELL.
[2019-04-04] MEDS: Potassium Chloride 20 MEQ in IV NS 0.9% 1,000 ML IV PRN (13:29)
[2019-04-04] MEDS: Magnesium 1GM/D5W 100ML PREMIX 100 ML IV SCH ×2 (14:30→16:05)
[2019-04-04 16:00] VITALS: BP 143/94
--- NOTE | 2019-04-04 18:52 | NUR ---
RN MS NOTES PT IN BED, AWAKE, ALERT AND ORIENTED, NO COMPLAINT OF PAIN, BREATHING PATTERN NORMAL, CALL LIGHT WITHIN REACH, IV FLUIDS INFUSING WELL, PM MEDS GIVEN ORDERED, PM CARE PROVIDED, FAMILY AT BEDSIDE, INFORMED OF PLAN OF CARE, ALL NEEDS ATTENDED.
--- NOTE | 2019-04-04 19:56 | NUR ---
MS/RN OPENING NOTES RECEIVED PATIENT IN BED, AWAKE, ALERT X3, ABLE TO VERBALIZE NEEDS, DISCUSSED PLAN OF CARE, FAMILY INVOLVE, RECEIVED ENDORSEMENT FROM AM RN FOR FRAN. WILL MONITOR. BED LOCKED, CALL LIGHTS WITHIN REACH. ABLE TO AMBULATE WITH SUPERVISION, RIGHT WRIST GAUGE 22 PATENT,
[2019-04-04 20:00] VITALS: BP 154/98
[2019-04-05] MEDS: Potassium Chloride 20 MEQ in IV NS 0.9% 1,000 ML IV PRN (03:51)
--- NOTE | 2019-04-05 07:30 | NUR ---
321-1 MS/RN CLOSING NOTES PATIENT ALERT, ORIENTED X3, ABLE TO VERBALIZE NEEDS AT ALL TIMES, DENIES ANY PAIN, ABLE TO USE BED SIDE COMMODE WITH SUPERVISION, ADEQUATE SLEEP, ATTENDED TO ALL NEEDS. BED LOCKED, CALL LIGHTS WITHIN REACH, TOLERATED FLUIDS, WILL ENDORSE TO AM RN FOR FRAN.
[2019-04-05 07:55] VITALS: BP 144/96
--- NOTE | 2019-04-05 08:00 | NUR ---
MS RN NOTES PATIENT IN BED RESTING NO SOB OR ACUTE DISTRESS NOTED. PATIENT ALERT, ORIENTED X3. MIDLINE INTACT PATENT. BED IN LOW LOCKED POSITION. CALL LIGHT WITHIN REACH. WILL CONTINUE TO MONITOR.
[2019-04-05] MEDS: PANTOPRAZOLE 40 MG TABLET.DR PO SCH (08:14)
[2019-04-05] MEDS: CALCIUM ACETATE 667 MG TABLET PO SCH ×3 (08:14→17:14)
[2019-04-05] MEDS: SEVELAMER CARBONATE 0.8 GM POWD.PACK GT SCH (08:14)
[2019-04-05 08:19] LABS: BASOPHILS # (AUTO) 0.1 /CMM (0.0-0.2); BASOPHILS % (AUTO) 0.7 % (0.0-2.0); HEMATOCRIT 23 % (33-45); HEMOGLOBIN 7.7 g/dL (11.5-14.8); LYMPHOCYTES # (AUTO) 1.9 /CMM (0.8-4.8); LYMPHOCYTES % (AUTO) 20.5 % (20.0-44.0); MEAN CORPUSCULAR HGB CONC 33 g/dl (31.0-36.0); MEAN CORPUSCULAR VOLUME 85 fL (82-100); MONOCYTES # (AUTO) 0.7 /CMM (0.1-1.30); MONOCYTES % (AUTO) 7.3 % (2.0-12.0); NEUTROPHILS # (AUTO) 6.2 /CMM (1.8-8.9); NEUTROPHILS % (AUTO) 66.5 % (43.0-81.0); PLATELET COUNT (AUTO) 364 /CMM (150-450); RED BLOOD CELL COUNT(AUTO) 2.76 MIL/uL (4.0-5.2); WHITE BLOOD COUNT (AUTO) 9.4 K/uL (4.3-11.0)
[2019-04-05 08:42] LABS: CALCIUM, SERUM 10.9 mg/dL (8.5-10.1); CREATININE 1.4 mg/dL (0.6-1.3); MAGNESIUM 1.4 mg/dL (1.8-2.4); POTASSIUM 3.5 mmol/L (3.5-5.1)
[2019-04-05] MEDS ORDERED: MAGNESIUM OXIDE 400 MG TABLET PO ONE (11:00)
[2019-04-05] MEDS: SEVELAMER CARBONATE 800 MG TABLET PO SCH ×2 (12:15→17:14)
[2019-04-05] MEDS ORDERED: SEVELAMER CARBONATE 800 MG TABLET PO SCH (13:00)
[2019-04-05] MEDS ORDERED: ACET325T53 PO (14:55)
[2019-04-05 16:00] VITALS: BP 133/91
--- NOTE | 2019-04-05 18:11 | NUR ---
MS RN NOTES PATIENT DISCHARGED HOME WITH MOM IN STABLE CONDITION. DISCHARGE TEACHING PROVIDED VERBALIZED UNDERSTANDING. ALL BELONGINGS ACCOUNTED FOR BELONGING LIST SIGNED. DR MONTIEL INFORMATION PROVIDED TO FOLLOW UP WITH NEPHROLOGY. AWARE OF ALL ABNORMAL TESTS. DR. CUELLAR CLEARED PATIENT FOR DISCHARGE. MIDLINE REMOVED WITH MINIMAL BLEEDING. PATIENT ESCORTED TO CAR BY AGITATOR OPERATOR.
== END 2019-04-05 18:30 | disposition home or self-care (01) | DRG 720 ==
LOC: ER 13:52 → ICU 17:24 → MED 03-21 12:21 → TELE 03-21 14:02 → MED 03-23 08:55
PROVIDERS: ADMIT Nurse Practitioner Acute Care; ATTEND Registered Nurse
PROC: 05HD33Z Insertion of Infusion Device into Right Cephalic Vein, Percutaneous Approach (ICD-10-PCS; principal; 2019-03-23)
PROC: 05HB33Z Insertion of Infusion Device into Right Basilic Vein, Percutaneous Approach (ICD-10-PCS; 2019-03-29)
PROC: 05H633Z Insertion of Infusion Device into Left Subclavian Vein, Percutaneous Approach (ICD-10-PCS; 2019-03-29)
PROC: 0JHF3XZ Insertion of Tunneled Vascular Access Device into Left Upper Arm Subcutaneous Tissue and Fascia, Percutaneous Approach (ICD-10-PCS; 2019-03-29)
PROC: B547ZZA Ultrasonography of Left Subclavian Vein, Guidance (ICD-10-PCS; 2019-03-29)
DX: A41.9 Sepsis, unspecified organism (principal); N17.0 Acute kidney failure with tubular necrosis; K72.00 Acute and subacute hepatic failure without coma; E43 Unspecified severe protein-calorie malnutrition; G93.41 Metabolic encephalopathy; M62.82 Rhabdomyolysis; E44.1 Mild protein-calorie malnutrition; E87.8 Other disorders of electrolyte and fluid balance, not elsewhere classified; J18.9 Pneumonia, unspecified organism; R65.10 Systemic inflammatory response syndrome (SIRS) of non-infectious origin without acute organ dysfunction; E83.51 Hypocalcemia; E87.1 Hypo-osmolality and hyponatremia; E87.5 Hyperkalemia; E83.39 Other disorders of phosphorus metabolism; E83.41 Hypermagnesemia; D64.9 Anemia, unspecified; N39.0 Urinary tract infection, site not specified; Z68.43 Body mass index [BMI] 50.0-59.9, adult; E66.01 Morbid (severe) obesity due to excess calories; W18.30XA Fall on same level, unspecified, initial encounter; Y92.002 Bathroom of unspecified non-institutional (private) residence as the place of occurrence of the external cause; B96.1 Klebsiella pneumoniae [K. pneumoniae] as the cause of diseases classified elsewhere
CPT/HCPCS: 36410; 36415; 71045-TC; 76705-TC; 80048-TC; 80053-TC; 80061-TC; 80074; 80076-TC; 80202-TC; 80305; 81000-TC; 82140-TC; 82550-TC; 83605-TC; 83735-TC; 84100-TC; 84443-TC; 84703-TC; 85025-TC; 85652-TC; 85730-TC; 86308-TC; 86644; 86645; 86663; 86664; 86665; 86704; 86705; 86706; 86709; 86850-TC; 87040-TC; 87045-TC; 87070-TC; 87081-TC; 87086-TC; 87186-TC; 87340; 87536; 90935-TC; 93307-TC; 97110-TC; 97116-TC; 97530-TC; A4216; C1750; C1769; G0378; G0480; J0610; J0696; J1644; J1815; J1885; J1940; J2270; J2405; J2543; J3370; J3475; J3480; J3490; J7030; J7060; J7070

== ENCOUNTER 2020-09-04 13:23 | Emergency (ER) | payer MEDICAID ==
[~2020-09-04] VITALS: Ht 162.6 cm; Wt 90.7 kg
[~2020-09-04 13:23] MED LIST: ACET325T53 PO
[2020-09-04 13:33] VITALS: BP 116/74
--- NOTE | 2020-09-04 13:57 | NUR ---
covid swab collected/sent to lab, no symptoms condition stable d/c home with instructions after care reviewed understood left er alert, oriented x 4.
== END 2020-09-04 13:59 | disposition home or self-care (01) ==
LOC: ER 13:26
DX: Z20.822 Contact with and (suspected) exposure to COVID-19 (principal)
CPT/HCPCS: 87426; 99283; C9803

== ENCOUNTER 2023-05-30 15:18 | Emergency (ER) | payer MEDICAID ==
[~2023-05-30] VITALS: Ht 167.6 cm; Wt 108.9 kg
[2023-05-30] MEDS ORDERED: LIDOCAINE HCL/MPF 1% 30 ML VIAL IJ ONE (16:02)
[2023-05-30] MEDS: LIDOCAINE HCL/PF 1% 30 ML VIAL TP ONE (16:05)
[2023-05-30] MEDS ORDERED: CEPH500C2 PO (17:03)
[2023-05-30 17:12] VITALS: BP 132/95; TEMP 98.1; O2SAT 99
== END 2023-05-30 17:13 | disposition home or self-care (01) ==
LOC: ER 15:26
DX: L03.011 Cellulitis of right finger (principal); M79.89 Other specified soft tissue disorders
CPT/HCPCS: 99283; 10060; J3490 ×2